=== PATIENT | female | born 1940 | race Caucasian/White ===

== ENCOUNTER 2020-05-01 09:47 | Outpatient (REF) | payer MEDICARE, SELFPAY | END 2020-05-01 09:48 | disposition home or self-care (01) | LOC: HO.LAB 09:47 | PROVIDERS: Visit Provider Internal Medicine | DX: Z20.822 Contact with and (suspected) exposure to COVID-19 (principal) | CPT/HCPCS: 36415; C9803; U0003 ==

== ENCOUNTER 2020-08-17 15:36 | Outpatient (REF) | payer MEDICARE, SELFPAY ==
--- NOTE | ~2020-08-17 | MM_ITS ---
EXAMINATION: MM SCREENING DIGITAL BREAST TOMOSYNTHESIS, BILATERAL CLINICAL INFORMATION: Screening. Asymptomatic. The lifetime risk of breast cancer based on the Tyrer-Cuzick Model is 3%. COMPARISON: Mammography: 06/11/2019, 04/23/2018, 04/19/2017 TECHNIQUE: Digital breast tomosynthesis is performed in both the craniocaudal and mediolateral oblique views along with computer-aided detection (CAD). Synthesized 2D images are generated from the tomosynthesis. Additional left MLO view is provided. FINDINGS: There are scattered areas of fibroglandular density (ACR BI-RADS breast composition Category b). There are no significant masses, abnormal calcifications, or other abnormalities. There is fine fibronodular parenchymal pattern similar to prior studies. The axilla and skin contours are unremarkable. No significant changes. MM/MM tomosynthesis screening BI IMPRESSION: No mammographic evidence of malignancy. ASSESSMENT: BI-RADS 1: Negative RECOMMENDATION: Routine annual mammography screening. This patient's information was entered into a reminder system with a target due date for their next mammogram.
== END 2020-08-17 15:37 | disposition home or self-care (01) ==
LOC: HO.MAMMO 15:36
PROVIDERS: Visit Provider Internal Medicine
DX: Z12.31 Encounter for screening mammogram for malignant neoplasm of breast (principal)
CPT/HCPCS: 77063; 77067

== ENCOUNTER 2021-03-17 11:39 | Emergency (ER) | payer OTHER, SELFPAY ==
--- NOTE | ~2021-03-17 | XR_ITS ---
EXAMINATION: XR HAND, RIGHT CLINICAL INFORMATION: Right hand/wrist pain COMPARISON: None TECHNIQUE: 4 views of the right hand FINDINGS: No fracture or dislocation. Alignment is anatomic. Joint spaces are maintained. Mild soft tissue swelling along the dorsum of the hand. XR/XR hand wrist RT IMPRESSION: Mild dorsal soft tissue swelling. No osseous abnormality.
[2021-03-17 12:38] VITALS: BP 131/70; PULSE 67; RESP 18; TEMP 36.8; O2SAT 96; BMI 29.5
--- NOTE | 2021-03-17 15:35 | ED.EXTPRO ---
HPI - Extremity Problem General Chief complaint: Extremity Injury, Upper Stated complaint: r hand pain/swelling Time Seen by Provider: 03/17/21 15:11 Source: patient and healthcare interpreter Mode of arrival: ambulatory Limitations: language barrier History of Present Illness HPI Narrative: 80-year-old female with past medical history of anemia, high cholesterol, hypertension, arthritis here with complaints of right hand and wrist pain for 2 weeks. Patient denies any fall or injury. She tells me she is right-handed and has been using hand more recently. She tells me she started to notice the pain after using scissors to cut open several boxes. She denies any numbness, tingling, warmth or redness or fever. Related Data Home Medications Medication Instructions Recorded Confirmed alendronate 70 mg tablet 1 tab PO QWEEK 06/01/20 06/01/20 amlodipine 5 mg tablet 1 tab PO DAILY 06/01/20 06/01/20 aspirin 81 mg tablet,delayed 1 tab PO DAILY 06/01/20 06/01/20 release calcium carbonate 600 mg (1,500 1 tab PO Q12H 06/01/20 06/01/20 mg)-vitamin D3 200 unit tablet (Calcium 600 + D(3)) ferrous sulfate 325 mg (65 mg 1 tab PO BID 06/01/20 06/01/20 iron) tablet lovastatin 20 mg tablet 1 tab PO BEDTIME 06/01/20 06/01/20 omega-3 fatty acids-fish oil 340 1 cap PO BID 06/01/20 06/01/20 mg-1,000 mg capsule (Fish Oil) Previous Rx's Medication Instructions Recorded naproxen 500 mg tablet 500 mg PO BID PRN #20 tab 03/17/21 Allergies Allergy/AdvReac Type Severity Reaction Status Date / Time SEAFOOD Allergy Intermediate VOMITTING, Uncoded 12/26/19 16:53 DIARRHEA AND DIZZINESS Review of Systems Review of Systems: Yes all other systems are reviewed and are negative Constitutional: Constitutional: Reports no additional constitutional complaints, Denies body ache(s), Denies chills, Denies fever(s), Denies headache(s) and Denies weakness Eyes: Eyes: Reports no additional eye complaints and Denies change in vision ENT: Reports system reviewed and no additional complaints, except as documented, Denies dizziness, Denies headache(s), Denies nasal congestion, Denies nasal discharge and Denies neck pain Cardiovascular: Cardiovascular: Reports no additional cardiovascular complaints, Denies chest pain, Denies leg edema and Denies dyspnea Respiratory: Respiratory: Reports no additional respiratory complaints, Denies cough and Denies dyspnea Gastrointestinal: Gastrointestinal: Reports no additional gastrointestinal complaints, Denies abdominal pain, Denies diarrhea, Denies nausea and Denies vomiting Genitourinary: Genitourinary: Reports no additional female genitourinary complaints and Denies urinary incontinence Musculoskeletal: Musculoskeletal: Reports no additional musculoskeletal complaints, Denies back pain, Reports arthralgias, Denies joint swelling, Denies neck pain, Denies numbness and Denies tingling Integumentary/Breasts: Skin/Breast: Reports system reviewed and no additional complaints, except as docu and Denies rash Neurologic: Reports system reviewed and no additional complaints, except as documented, Denies Abnormal speech present, Denies dizziness, Denies headache(s), Denies numbness, Denies tingling and Denies weakness PMFSH Past Medical History Attestation statement: The following information was validated with the patient. Source: old records reviewed and nursing notes reviewed Medical History History of anemia of chronic disease Hx of cataract Hx of thyroid nodule Family History Family History Father History of throat cancer Paternal Aunt Hx of breast cancer Social History Social History Alcohol intake: former Advance Directives: No Advance Directives Information Provided: Yes Physical Exam Vital Signs: Vital Signs: Last Vital Signs Temp 98.2 F 03/17/21 12:38 Pulse 67 03/17/21 12:38 Resp 18 03/17/21 12:38 BP 131/70 03/17/21 12:38 Pulse Ox 96 03/17/21 12:38 BMI result Body Mass Index 29.5 Const: General: cooperative, healthy appearing, comfortable and no acute distress Orientation/consciousness: patient oriented x3 Limitations: no limitations HENMT: Head: Yes normal to inspection Ears: hearing grossly normal bilaterally General nose exam: Normal external nose present Face and sinus: Yes normal facial exam Mouth: Normal oral and palatal mucosa present Throat: Yes posterior oropharynx normal Eyes: General: appearance normal, both eyes and all related structures Pupils: Equal, round and reactive pupils present Neck: Neck: Yes normal visual inspection Chest: Chest palpation & inspection: normal inspection of the chest Resp: Effort & Inspection: normal respiratory effort Auscultation: clear to auscultation bilaterally Cardio: Rate: regular rate Rhythm: regular rhythm Peripheral pulses: Peripheral pulses 2+ throughout GI: Inspection: Yes normal to inspection Palpation (GI): Soft to palpation and nontender Auscultation: normal bowel sounds Back/Spine/Pelvis: Thoracic/Lumbar Spine: thoracic and lumbar spine normal to inspection Skin: General skin exam: no rashes or lesions noted Neuro: General: patient oriented x3, no focal motor deficits and normal sensation to monofilament Cranial nerves: Yes Equal, round and reactive pupils present Cognition (Neuro): normal cognition Speech: No Abnormal speech present Gait exam (Neuro): Normal gait present Motor exam (neuro): 5/5 motor strength present throughout Extrem: Other: Tenderness over the distal right wrist over the radial aspect and over the right thumb and thenar. Positive Donato's test. Mild swelling noted around the site. No circumferential swelling. No redness or warmth. Neurovascularly intact distally. 2+ radial and ulnar pulses. General: Yes normal to inspection Course Course Course Narrative: 80-year-old female right-hand dominant here with complaints of right hand and wrist pain 2 weeks after using some scissors to cut open several boxes. Exam is consistent with de Quervain tenosynovitis. Patient need placed in a cock-up Velcro wrist splint. Will give her a low-dose NSAID and have her follow-up with orthopedics for persistent symptoms. X-rays from triage so No bony abnormality. Reviewed worrisome signs and symptoms of when to return to the emergency department. Comfortable discharge home. MDM - Extremity (Nontraumatic) Medical Records Attestation: I reviewed the patient's medical records. Lab Data Attestation: I reviewed the patient's lab results. Imaging Data right hand/wrist xray: Attestation: I personally reviewed and interpreted this imaging study as follows: Radiologist's impression: FINDINGS: No fracture or dislocation. Alignment is anatomic. Joint spaces are maintained. Mild soft tissue swelling along the dorsum of the hand.? XR/XR hand wrist RT IMPRESSION: Mild dorsal soft tissue swelling. No osseous abnormality.? Procedures Procedure Narrative Procedure Narrative: velcro cock up wrist splint Discharge Plan Discharge Clinical Impression: De Quervain's disease (tenosynovitis) Patient Disposition: Home, Self-Care Instructions: De Quervain Disease (ED) Additional Instructions: Hielo en la wilman. F?pj para mayor comodidad hank el d?a. Limite el uso de la mano. Seguimiento con ortopedia en 1 semana para dolor persistente. Prescriptions: New naproxen 500 mg tablet 500 mg PO BID PRN (Reason: pain) Qty: 20 RF: 0 No Action alendronate 70 mg tablet 1 tab PO QWEEK RF: 0 amlodipine 5 mg tablet 1 tab PO DAILY RF: 0 calcium carbonate-vitamin D3 [Calcium 600 + D(3)] 600 mg(1,500mg) -200 unit tablet 1 tab PO Q12H RF: 0 aspirin 81 mg tablet,delayed release (DR/EC) 1 tab PO DAILY RF: 0 ferrous sulfate 325 mg (65 mg iron) tablet 1 tab PO BID RF: 0 lovastatin 20 mg tablet 1 tab PO BEDTIME RF: 0 Fish Oil 340-1,000 mg capsule 1 cap PO BID RF: 0 Referrals: Jose Orozco MD [Physician] - 1 week (if no improvement in 7 days ) Interventions: ED Discharge Assessment Last Done: 03/17/21 16:19 Discharge Date/Time: 03/17/21 16:19 Print Language: Pashto
== END 2021-03-17 16:19 | disposition home or self-care (01) ==
PROVIDERS: Emergency Provider Emergency Medicine; PCP Internal Medicine
DX: M65.4 Radial styloid tenosynovitis [de Quervain] (principal); I10 Essential (primary) hypertension
CPT/HCPCS: 73110; 73130; 99283

== ENCOUNTER 2021-08-13 07:47 | Emergency (ER) | payer OTHER, SELFPAY ==
[2021-08-13 08:12] VITALS: BP 162/70; PULSE 69; RESP 18; TEMP 36.7; O2SAT 97; BMI 27.4
--- NOTE | 2021-08-13 08:58 | PC.NURSE ---
paperwork faced to [facility].
--- NOTE | 2021-08-13 09:17 | ED_ITS ---
HPI - General Adult General Chief complaint: Animal Bite Stated complaint: Leg lac Time Seen by Provider: 08/13/21 08:13 Source: patient Mode of arrival: ambulatory Limitations: no limitations History of Present Illness HPI narrative: 80 yolld female presents to the ED for left leg bite by a dog in her neighborhood. Patient states she was walking this morning and a women in her neighborhood was walking her dog and it got loose and bit her in her leg. Patient does not know where woman live and unknown of dog's rabies vaccine stratus Related Data Home Medications Medication Instructions Recorded Confirmed alendronate 70 mg tablet 1 tab PO QWEEK 06/01/20 07/20/21 amlodipine 5 mg tablet 1 tab PO DAILY 06/01/20 07/20/21 aspirin 81 mg tablet,delayed 1 tab PO DAILY 06/01/20 07/20/21 release calcium carbonate 600 mg-vitamin 1 tab PO Q12H 06/01/20 07/20/21 D3 5 mcg (200 unit) tablet (Calcium 600 + D(3)) ferrous sulfate 325 mg (65 mg 1 tab PO BID 06/01/20 07/20/21 iron) tablet lovastatin 20 mg tablet 1 tab PO BEDTIME 06/01/20 07/20/21 omega-3 fatty acids-fish oil 340 1 cap PO BID 06/01/20 07/20/21 mg-1,000 mg capsule (Fish Oil) Previous Rx's Medication Instructions Recorded naproxen 500 mg tablet 500 mg PO BID PRN #20 tab 03/17/21 amoxicillin 875 mg-potassium 1 tab PO Q12H 10 Days #20 tab 08/13/21 clavulanate 125 mg tablet Allergies Allergy/AdvReac Type Severity Reaction Status Date / Time SEAFOOD Allergy Intermediate VOMITTING, Uncoded 12/26/19 16:53 DIARRHEA AND DIZZINESS Review of Systems Review of Systems: Dog bite left leg. Yes all other systems are reviewed and are negative PMFSH Past Medical History Medical History History of anemia of chronic disease Hx of cataract Hx of thyroid nodule Family History Family History Father History of throat cancer Paternal Aunt Hx of breast cancer Social History Social History (Updated 04/12/22 @ 14:46 by Genna Haque CMA) Household Members: None Housing: Apartment Are you a primary medicare specialist to a significant other at home: No Do you presently have visiting nurse or other home services: Yes Alcohol intake: former Patient Tobacco Use Status: Never used Tobacco service: No Current occupational status: retired Physical Exam ED Vital Signs: Vital Signs - 24 hr 08/13/21 08:12 08/13/21 09:48 Temperature 98.1 F 98.1 F Pulse Rate 69 57 Respiratory Rate 18 14 Blood Pressure 162/70 H 139/67 Pulse Oximetry 97 95 BMI result Body Mass Index 27.4 Const General: cooperative, healthy appearing, comfortable, no acute distress, well developed, alert, awake and Physically active Orientation/consciousness: patient oriented x3 HENMT Head: Yes normal to inspection, Yes No palpable skull fracture present, Yes normocephalic, Yes atraumatic and No abrasion Eyes General: appearance normal, both eyes and all related structures Neck Neck: Yes normal visual inspection, Yes full ROM, Yes no lymphadenopathy, Yes no meningeal signs, Yes trachea midline, Yes supple, No anterior neck swelling and No tender Chest Chest palpation & inspection: normal inspection of the chest and normal palpation of entire chest wall Resp Effort & Inspection: normal respiratory effort and able to speak in complete sentences Auscultation: clear to auscultation bilaterally Cardio Jugular venous distension: no JVD Heart sounds: S1 normal heart sound present and S2 normal heart sound present GI Inspection: Yes normal to inspection and No abdominal wall ecchymosis Palpation (GI): Soft to palpation, not firm, nontender, no guarding and not rigid General: No CVA tenderness and Yes no CVA tenderness Back/Spine/Pelvis Back: no CVA tenderness, No CVA tenderness and No back tenderness Skin General skin exam: no rashes or lesions noted and elasticity normal Trauma: laceration (very superficial) left anterior lower leg Neuro General: patient oriented x3, gait normal, no meningeal signs and CN's II-XI intact bilaterally Cranial nerves: Yes CN's II-XII intact bilaterally Extrem General: Yes normal to inspection and Yes full ROM Upper/lower leg/hip images: 1. Small laceration. Not deep. Bleeding controlled. Extremities motor/neuro/vascular exam intact Psych Appearance: grossly normal, well kempt and not disheveled Course Course Course Narrative: Tdap ordered. Patient states she will not be able to get woman's from the records contact information does not know where she lived. So she is agreeable to rabies vaccine and immunoglobulin. Patient will be discharged with antibiotics Reevaluation(s) Reevaluation #1: Immunoglobulin rabies injection placed into wound. Vaccine given. Vaccine schedule given to patient. Patient will be discharged with Augmentin. Tdap given. Time: 10:37 Medical Decision Making MDM Narrative Medical decision making narrative: Dog bite Discharge Plan Discharge Clinical Impression: Dog bite Patient Disposition: Home, Self-Care Instructions: Animal Bite (ED) Additional Instructions: Se le gia? de tammy con antibi?ticos para prevenir la infecci?n por la mordedura del yanely. Debe regresar 3 veces m?s para la vacuna contra la radha. Regrese al servicio de urgencias de inmediato si tiene enrojecimiento, hinchaz?n, secreci?n de pus, mal olor, fiebre, escalofr?os, decoloraci?n de color alli azulado o cualquier otro s?ntoma preocupante. Por favor, héctor un seguimiento con el proveedor de atenci?n primaria Prescriptions: New amoxicillin-pot clavulanate 875-125 mg tablet 1 tab PO Q12H 10 Days Qty: 20 0RF No Action alendronate 70 mg tablet 1 tab PO QWEEK 0RF amlodipine 5 mg tablet 1 tab PO DAILY 0RF calcium carbonate-vitamin D3 [Calcium 600 + D(3)] 600 mg(1,500mg) -200 unit tablet 1 tab PO Q12H 0RF aspirin 81 mg tablet,delayed release (DR/EC) 1 tab PO DAILY 0RF ferrous sulfate 325 mg (65 mg iron) tablet 1 tab PO BID 0RF lovastatin 20 mg tablet 1 tab PO BEDTIME 0RF Fish Oil 340-1,000 mg capsule 1 cap PO BID 0RF naproxen 500 mg tablet 500 mg PO BID PRN (Reason: pain) Qty: 20 0RF Discharge Date/Time: 08/13/21 16:49 Print Language: Thai
[2021-08-13 09:48] VITALS: BP 139/67; PULSE 57; RESP 14; TEMP 36.7; O2SAT 95
[2021-08-13] MEDS: Rabies Vaccine (PCEC)/PF 1 ML VIAL IM (10:02)
[2021-08-13] MEDS: Diphth,Pertus(ACell),Tet Adult 0.5 ML SYRINGE IM (10:12)
[2021-08-13] MEDS: Rabies Immune Globulin/PF 1,500 UNIT/5 ML VIAL 1233.78 UNIT IM (10:20)
--- NOTE | 2021-08-13 10:27 | PC.NURSE ---
Fax sent to pharmacy and same day. COnfirmation received.
== END 2021-08-13 16:49 | disposition home or self-care (01) ==
PROVIDERS: Emergency Provider Emergency Medicine Emergency Medical Services; PCP Internal Medicine
DX: S81.852A Open bite, left lower leg, initial encounter (principal); Z20.3 Contact with and (suspected) exposure to rabies; Z29.14 Encounter for prophylactic rabies immune globulin; W54.0XXA Bitten by dog, initial encounter; Y93.01 Activity, walking, marching and hiking; Y92.410 Unspecified street and highway as the place of occurrence of the external cause; Y99.9 Unspecified external cause status
CPT/HCPCS: 90375; 90471; 90472; 90675; 90715; 96372; 99283; 99284

== ENCOUNTER 2021-08-16 13:06 | Outpatient (REF) | payer OTHER, SELFPAY | END 2021-08-16 13:07 | disposition home or self-care (01) | LOC: HO.MDS 13:06 | PROVIDERS: PCP Internal Medicine | DX: Z29.14 Encounter for prophylactic rabies immune globulin (principal); S80.872D Other superficial bite, left lower leg, subsequent encounter; W54.0XXD Bitten by dog, subsequent encounter; Z20.3 Contact with and (suspected) exposure to rabies | CPT/HCPCS: 90471; 90675 ==

== ENCOUNTER 2021-08-20 12:58 | Outpatient (REF) | payer OTHER, SELFPAY | END 2021-08-20 12:59 | disposition home or self-care (01) | LOC: HO.MDS 12:58 | DX: Z29.14 Encounter for prophylactic rabies immune globulin (principal); S80.872D Other superficial bite, left lower leg, subsequent encounter; W54.0XXD Bitten by dog, subsequent encounter; Z20.3 Contact with and (suspected) exposure to rabies | CPT/HCPCS: 90675; 96372 ==

== ENCOUNTER 2021-08-27 13:00 | Outpatient (REF) | payer OTHER, SELFPAY | END 2021-08-27 13:01 | disposition home or self-care (01) | LOC: HO.MDS 13:00 | PROVIDERS: Visit Provider Physician Assistant | DX: Z29.14 Encounter for prophylactic rabies immune globulin (principal); S80.872D Other superficial bite, left lower leg, subsequent encounter; W54.0XXD Bitten by dog, subsequent encounter; Z20.3 Contact with and (suspected) exposure to rabies | CPT/HCPCS: 90471; 90675 ==

== ENCOUNTER 2022-05-02 08:35 | Outpatient (REF) | payer OTHER, SELFPAY ==
--- NOTE | ~2022-05-02 | MM_ITS ---
EXAMINATION: MM SCREENING DIGITAL BREAST TOMOSYNTHESIS, BILATERAL CLINICAL INFORMATION: Screening. Asymptomatic. The lifetime risk of breast cancer based on the Tyrer-Cuzick Model is 2%. COMPARISON: Mammography: 08/17/2020, 06/11/2019, 04/23/2018 TECHNIQUE: Digital breast tomosynthesis is performed in both the craniocaudal and mediolateral oblique views along with computer-aided detection (CAD). Synthesized 2D images are generated from the tomosynthesis. FINDINGS: There are scattered areas of fibroglandular density (ACR BI-RADS breast composition Category b). There are no significant masses, abnormal calcifications, or other abnormalities. Parenchymal pattern is similar to prior studies. There is no architectural abnormality. The axilla and skin contours are unremarkable. No significant changes. MM/MM tomosynthesis screening BI IMPRESSION: No mammographic evidence of malignancy. ASSESSMENT: BI-RADS 1: Negative RECOMMENDATION: Routine annual mammography screening. This patient's information was entered into a reminder system with a target due date for their next mammogram.
== END 2022-05-02 08:36 | disposition home or self-care (01) ==
LOC: HO.MAMMO 08:35
PROVIDERS: Visit Provider Internal Medicine
DX: Z12.31 Encounter for screening mammogram for malignant neoplasm of breast (principal)
CPT/HCPCS: 77063; 77067

== ENCOUNTER 2023-04-28 08:11 | Outpatient (REF) | payer OTHER, SELFPAY ==
[2023-04-28 12:10] LABS: Anion Gap 13 (12-20); Blood Urea Nitrogen 25 mg/dL (9-16); Calcium 9.5 mg/dL (8.4-10.2); Carbon Dioxide 29 mmol/L (22-29); Chloride 106 mmol/L (96-108); Estimated Glomerular Filt Rate > 60; Glucose Random 99 mg/dL (60-115); Potassium 4.3 mmol/L (3.3-5.1); Sodium 144 mmol/L (135-145)
== END 2023-04-28 08:12 | disposition home or self-care (01) ==
LOC: HO.HHCL 08:11
PROVIDERS: Visit Provider Internal Medicine
DX: I10 Essential (primary) hypertension (principal)
CPT/HCPCS: 36415; 80048

== ENCOUNTER 2023-05-12 14:27 | Outpatient (REF) | payer OTHER, SELFPAY | END 2023-05-12 14:28 | disposition home or self-care (01) | LOC: HO.MAMMO 14:27 | PROVIDERS: PCP Internal Medicine; Visit Provider Internal Medicine | DX: Z12.31 Encounter for screening mammogram for malignant neoplasm of breast (principal) | CPT/HCPCS: 77063; 77067 ==

== ENCOUNTER → 2023-05-12 15:15 | Outpatient (BNV) | payer OTHER, SELFPAY | PROVIDERS: PCP Internal Medicine; Visit Provider Radiology Diagnostic Radiology | DX: Z12.31 Encounter for screening mammogram for malignant neoplasm of breast (principal) | CPT/HCPCS: 77063; 77067 ==

== ENCOUNTER → 2023-08-28 13:43 | Outpatient (REF) | payer OTHER, SELFPAY ==
--- NOTE | 2023-08-28 13:47 | CA_ITS ---
Transthoracic Echocardiogram Patient (Last, First, Middle): Dinah Minaya, Gender: Female Date of : 1940 Age: 82 Procedure Date: 08/28/2023 Procedure Type: Transthoracic Echocardiogram Location: OP Height: 149.86 cm Weight: 58.97 kg BSA: 1.54 m2 Heart Rate: 64 bpm BP: 128 / 72 mmHg Foreclosure Paralegal: SB Referring MD: Darwin Rosas MD Symptoms: HEART MURMUR Study Quality: Fair ECG Rhythm: Sinus Conclusions: - The left ventricular systolic function is normal. The calculated ejection fraction is 65% by biplane method. - The left atrium is moderately dilated. - There is mild calcification of the aortic valve. - There is mild mitral annular calcification. - There is mild dilatation of the ascending aorta measuring 3.90 cm. Findings Left Ventricle Normal left ventricular cavity size. There is normal left ventricular wall thickness. The left ventricular systolic function is normal. The calculated ejection fraction is 65% by biplane method. There is no evidence of regional wall motion abnormalities. Diastolic function is normal for age. Right Ventricle Normal right ventricular cavity size and systolic function. Atria The left atrium is moderately dilated. The right atrium is normal in size. Aortic Valve There is a normal trileaflet aortic valve. There is mild calcification of the aortic valve. There is no aortic valve stenosis. There is no aortic valve regurgitation. Mitral Valve There is mild mitral annular calcification. There is no mitral valve regurgitation. There is no mitral valve stenosis. Pulmonic Valve The pulmonic valve is likely normal. Tricuspid Valve There is mild tricuspid valve regurgitation. There is no evidence of pulmonary hypertension. Great Vessels There is mild dilatation of the ascending aorta measuring 3.90 cm. Venous The inferior vena cava is normal in size and collapses greater than 50% with inspiration. Pericardium/Pleural There is no evidence of pericardial effusion. Prior Study Comparison Changes noted compared to prior study dated: 10/25/2017. Left atrium dilated. Measurements 2D Linear Measurements IVSd: 1.00 0.6-0.9/0.6-1.0 cm LVIDd: 5.01 3.9-5.3/4.2-5.9 cm LVIDd Index: 3.25 2.4-3.2/2.2-3.1 cm/m2 LVIDs: 3.13 2.0-3.6 cm LVPWd: 0.71 0.7-1.1 cm Ao Root: 2.90 2.1-3.5 cm LA Diam: 3.80 2.7-3.8/3.0-4.0 cm LAIDs Index: 2.47 1.5-2.3 cm/m2 LV Mass: 184.82 67-162/88-224 g LV Mass Index: 120.01 43-95/49-115 g/m2 LVOT Diam: 1.90 3.0+(-)1.3 cm 2D Systolic Function EF 4C: 63.10 >55% EF 2C: 65.00 >55% EF BiP: 64.80 >55% Mitral Valve MV Pk E: 0.96 MV PK A: 0.97 MV Decel Time: 236.00 E/A: 1.00 E'Lateral: 5.55 E'Medial: 6.42 E/E' Med: 15.00 E/E' Lat: 17.40 PHT: 69.00 MVA PHT: 3.19 Decel [place]: 4.08 Aortic Valve AoV Pk Manpreet: 1.85 AoV Pk Grad: 14.00 JERZY: 1.99 LVOT LVOT Pk Manpreet: 1.32 LVOT Mn Manpreet: 0.91 LVOT VTI: 0.30 LVOT Pk Grad: 7.00 LVOT Mn Grad: 4.00 LVOT Diam: 1.90 LVOT Area: 2.84 Diastolic Function MV Pk E: 0.96 MV Pk A: 0.97 E/A: 1.00 E'Medial: 6.42 E/E' Med: 15.00 E' Laterial: 5.55 E/E' Lat: 17.40 Right Ventricle TAPSE (mm): 24.80 TVS' Manpreet: 16.50 Tricuspid Valve TR Pk Manpreet: 2.55 TR Pk Grad: 26.00 RA Press: 3.00 RVSP: 29.00 Great Vessels Aorta Ao Root-2D: 2.90 2.0-3.7 cm Ao Asc: 3.90 2.1-3.4 cm Pulmonary Valve PV Pk Manpreet: 0.93 Peak PV Grad: 3.00 Updated in Other Vendor System with Status of Final Hector Ramires MD electronically signed on 08/28/2023 4:09:00 PM with status of Final
== END ==
LOC: HO.CARD 13:43
PROVIDERS: PCP Internal Medicine; Visit Provider Internal Medicine
DX: R01.1 Cardiac murmur, unspecified (principal)
CPT/HCPCS: 93306

== ENCOUNTER → 2023-08-28 13:47 | Outpatient (BNV) | payer OTHER, SELFPAY | PROVIDERS: PCP Internal Medicine; Visit Provider Internal Medicine | DX: I36.1 Nonrheumatic tricuspid (valve) insufficiency (principal); I35.8 Other nonrheumatic aortic valve disorders; I34.81 Nonrheumatic mitral (valve) annulus calcification | CPT/HCPCS: 93306 ==

== ENCOUNTER 2023-12-18 08:10 | Outpatient (REF) | payer OTHER, SELFPAY ==
[2023-12-18 12:22] LABS: Alanine Aminotransferase 12 U/L (0-31); Albumin Level 3.7 g/dL (3.5-5.0); Alkaline Phosphatase 80 U/L (39-117); Aspartate Amino Transferase 17 U/L (5-31); Bilirubin Direct 0.2 mg/dL (0.0-0.5); Bilirubin Total 0.5 mg/dL (0.0-1.0); Cholesterol 146 mg/dL (<200); HDL Cholesterol 39 mg/dL (>40); LDL Cholesterol Calculated 93 mg/dL (<100); Total Protein 7.6 g/dL (6.5-8.0); Triglycerides 70 mg/dL (<150)
[2023-12-18 14:53] LABS: Reflex LDLD? No
== END 2023-12-18 08:11 | disposition home or self-care (01) ==
LOC: HO.HHCL 08:10
PROVIDERS: Visit Provider Internal Medicine
DX: E78.00 Pure hypercholesterolemia, unspecified (principal); B35.1 Tinea unguium; I10 Essential (primary) hypertension
CPT/HCPCS: 36415; 80061; 80076

== ENCOUNTER 2024-06-17 14:55 | Outpatient (REF) | payer OTHER, SELFPAY ==
--- OUTSIDE RECORDS SUMMARY | 2024-06-17 17:06 | XMS_ITS | Encounter Summary ---
Author Organization [facility] Address [address] [place] [address] Care Team Providers Care Soda Fountain Clerk Name Role Phone Darwin Mccain MD Primary Care Provide r Reason for Visit * Reason Comments Med Refill Encounter Details Date Type Department Care Team ([facility] st Contact Info) Description 11/23/2023 Refill [facility] [address], [place] [phone] Darwin Mccain MD [address] [place], [place] [phone] Onychomycosis of left great toe Social History Tobacco Use Types Packs/Day Years Used Date Smoking Tobacco: Never Passive Smoke Exposure: Never Smokeless Tobacco: Never Depression Answer Date Recorded Patient Health Questionnaire-9 Score 0 08/15/2023 Patient Health Questionnaire-9 Score 0 08/15/2023 Last PHQ-9: Questionnaire Data Not on file 0 08/15/2023 Housing Stability Answer Date Recorded What is your housing situation today? I have gar[facility] clement 02/03/[address] you li ve. Do you have problems with any of the following? None of the above 02/03/2023 Food Insecurity Answer Date Recorded Within the past 12 months, y ou worried that your food would run out before you got money to buy more: Never True 02/03/2023 Within the past 12 months,th e food you bought just didn't last and you didn't have enough money to get more: Never True Transportation Answer Date Recorded In the past 12 months, has l ack of transportation kept you from medical appts, meetings, work or from getting things needed for daily living? No 02/03/2023 Utilities Answer Date Recorded In the past 12 months, has t he electric, gas, oil or water company threatened to shut off services in your home? No 02/03/2023 Depression Answer Date Recorded Patient Health Questionnaire-2 Score 0 08/15/2023 Comments Unknown Sex and Gender Information Value Date Recorded Sex Assigned at Female 02/07/2022 10:16 AM EDT Legal Sex Female 10:16 AM EDT Gender Identity Female 02/07/2022 10:16 AM EDT Sexual Orientation Straight 02/07/2022 10 :16 AM EDT documented as of this encounter Plan of Treatment Upcoming Encounters Date Type Department Care Team (Late st Contact Info) Description 08/13/2024 2:15 PM EDT Office Visit [facility] [address] [place] [address] Darwin Mccain MD [address] [place], [place] [phone] documented as of this encounter Visit Diagnoses Diagnosis Onychomycosis of left great toe documented in this encounter Additional Health Concerns Assessment Noted Time PHQ-9 Depression Total Score: 0 08/15/19 24 2:20 PM EDT documented as of this encounter Care Teams Soda Fountain Clerk Relationship Specialty Start Date End Date Darwin Mccain MD [address] [place] [phone] PCP - General Internal Medicine 08/07/20 documented as of this encounter
--- OUTSIDE RECORDS SUMMARY | 2024-06-17 17:06 | XMS_ITS | Encounter Summary ---
Author Organization [employer] Address [address] [facility] 7[address] [place] [address] Care Team Providers Care Truss Maker Name Role Phone Darwin Mccain MD Primary Care Provide r Reason for Visit * Reason Comments Med Refill Encounter Details Date Type Department Care Team ([facility] st Contact Info) Description 06/04/2024 Refill [facility] [address] [place], [place] [phone] Darwin Mccain MD [address] [place], [place] [phone] Social History Tobacco Use Types Packs/Day Years [...] Recorded Patient Health Questionnaire-2 Score 0 08/15/2023 Internet Access Answer Date Recorded Internet Access Q1 Yes 12/11/2023 Internet Access Q2 Not on file 12/11/2023 Comments Unknown Sex and Gender Information Value [...] Description 08/13/2024 2:15 PM EDT Office Visit [facility] [address] [place] [address] Darwin Mccain MD [address] [place] [address] documented as of this encounter Visit Diagnoses Not on filedocumented in this encounter Additional Health Concerns Assessment Noted Time PHQ-9 Depression Total Score: 0 08/15/19 24 2:20 PM EDT documented as of this encounter Care Teams Truss Maker Relationship Specialty Start Date End Date Darwin Mccain MD [address] [place] [address] PCP - General Internal Medicine 08/07/20 documented as of this encounter
--- OUTSIDE RECORDS SUMMARY | 2024-06-17 17:06 | XMS_ITS | Clinical Summary ---
Author Organization [employer] Address [address] [place] [address] 7[address] [place] [address] Care Team Providers Care On Car Supervisor Name Role Phone Darwin Mccain MD Primary Care Provide r Allergies No known active allergies Medications FeroSul 325 (65 Fe) MG tablet TAKE 1 TABLET BY MOUTH TWICE DAILY IN THE MORNING AND IN THE EVENING 05/20/19 23 Active ammonium lactate (Lac-Hydrin) 12 % lotion APPLY TO SKIN EVERY DAY AFTER DE BATH 01/05/20 23 Active gabapentin (Neurontin) 100 MG capsule TAKE 1-3 CAPSULES BY MOUTH AT BEDTIME 11/26/19 23 Active triamcinolone (Kenalog) 0.1 % cream MIX WITH cerave AND APPLY DAILY TO ARMS DIRECTED 01/07/20 23 Active Diclofenac Sodium 1 % creamIndications :Actinic keratoses Apply twice daily for 1-2 weeks 120 g 04/28/19 24 Active fluorouracil (Efudex) 5 % creamIndications :Actinic keratoses Apply topically 2 times daily. For 1-2 weeks 40 g 06/02/19 24 Active Calcium + Vitamin D3 600-5 MG-MCG tabletIndication s:Age-related osteoporosis without current pathological fracture TAKE 1 TABLET BY MOUTH EVERY MORNING 60 tablet 06/27/19 24 Active amLODIPine (Norvasc) 2.5 MG tablet TAKE 1 TABLET BY MOUTH EVERY MORNING 30 tablet 07/20/19 24 Active lovastatin (Mevacor) 20 MG tablet TAKE 1 TABLET BY MOUTH AT BEDTIME 30 tablet 07/20/19 24 Active amLODIPine (Norvasc) 5 MG tablet TAKE 1 TABLET BY MOUTH EVERY MORNING 30 tablet 07/20/19 24 Active valsartan (Diovan) 80 MG tablet TAKE 1 TABLET BY MOUTH EVERY MORNING 30 tablet 11 07/20/19 24 Active albuterol 108 (90 Base) MCG/ACT inhaler Inhale 2 puffs every 6 (six) hours if needed for wheezing. 18 g 11 11/20/19 24 025 Active fluticasone furoate (Arnuity Ellipta) 100 MCG/ACT inhaler Inhale 1 puff Once per day. Rinse mouth with water after use to reduce aftertaste and incidence of candidiasis. Do not swallow. 1 each 11/20/19 24 025 Active omega-3 acid ethyl esters (Lovaza) 1 g capsule TAKE 1 CAPSULE BY MOUTH TWICE DAILY IN THE MORNING AND IN THE EVENING 180 capsule 1 01/23/20 24 Active omeprazole OTC (PriLOSEC OTC) 20 MG EC tabletIndication s:Gastroesophage al reflux disease without esophagitis Take 1 tablet (20 mg) by mouth before breakfast. Do not crush, chew, or split. 30 tablet 3 03/21/20 24 Active aspirin (Aspirin Low Dose) 81 MG EC tablet Take 1 tablet (81 mg) by mouth in the morning. 90 tablet 04/02/20 24 Active alendronate (Fosamax) 70 MG tabletIndication s:Osteoporosis, unspecified osteoporosis type, unspecified pathological fracture presence TAKE 1 TABLET BY MOUTH ONCE A WEEK WITH 6 TO 8 OZ OF WATER 30 MINUTES BEFORE FIRST FOOD OF DAY. DO NOT LIE DOWN FOR 30 MINUTES. 12 tablet 1 04/15/19 25 Active fluticasone (Flonase) 50 MCG/ACT nasal spray INSTILL 2 SPRAYS IN EACH NOSTRIL ONCE DAILY 16 g 2 06/04/19 25 Active fluticasone (Flonase) 50 MCG/ACT nasal spray INSTILL 2 SPRAYS IN EACH NOSTRIL ONCE DAILY 16 g 2 02/19/20 24 025 Discontinued Active Problems Problem Noted Date Diagnosed Date Gastroesophageal reflux disease without esophagi tis 03/21/2024 Assessment & Plan (03/21/2024 3:02 PM EST): New onset Plan: Omeprazole 20 mg po daily Overweight (BMI 25.0-29.9) 08/15/2023 Assessment & Plan (08/15/2023 2:45 PM EDT): Patient has been counseled and educated about diet and exercise. Personal goal of weight loss discussedPatient has comorbidity of: HTN Heart murmur 08/15/2023 Assessment & Plan (12/19/2023 1:01 PM EDT): ECHO 08/28/2023 showed: Conclusions: - The left ventricular systolic function is normal. The calculated ejection fraction is 65% by biplane method. - The left atrium is moderately dilated. - There is mild calcification of the aortic valve. - There is mild mitral annular calcification. - There is mild dilatation of the ascending aorta measuring 3.90 cm. Assessment & Plan (08/15/2023 2:56 PM EDT): Newly noted Plan; ECHO Onychomycosis of left great toe 08/15/2023 Assessment & Plan (08/15/2023 3:17 PM EDT): Patient would like to be treated Discussed different options, opted for Oral terbinafine, discussed potential risks such as liver inflammation or even damage. Pt would like to take it. 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 CSF analysis showed Glu 50, OCBs 4 and her VDRL was NEGATIVE Interestingly enough despite a negative VDRL he chose to treat her again with PCN ( Pt had been appropriately treated for Syphilis many years ago and her RPR titers had remained very low over the years He mentions on his note from 10/22/2018 that MRI of brain only showed mild atrophy and mild MVD He stopped her Aricept Assessment & Plan (05/31/2022 2:00 PM EST): She is under the care of neurology ( Dr savage ) who as part of his work up did a lumbar puncture. CSF analysis showed Glu 50, OCBs 4 and her VDRL was NEGATIVE Interestingly enough despite a negative VDRL he chose to treat her again with PCN ( Pt had been appropriately treated for Syphilis many years ago and her RPR titers had remained very low over the years He mentions on his note from 10/22/2018 that MRI of brain only showed mild atrophy and mild MVD He stopped her Aricept and asked her to go back and see him Mild persistent asthma 10/25/2016 Assessment & Plan (05/31/2022 2:00 PM EST): Remains on Flovent and Albuterol, no recent exacerbations. Osteoporosis 06/30/2015 Assessment & Plan (05/31/2022 2:00 PM EST): On Fosamax q week Continue with Calcium plus vit D Essential hypertension 03/26/2015 Assessment & Plan (03/21/2024 2:55 PM EST): Pt here for a follow up BP remains controlled She is on a regimen of: Norvasc 7.5 mg po daily and Diovan 80 mg po daily Most recent electrolytes, Bun and Creatinine done on: Lab Results Component Value Date NA 144 04/28/2023 NA 142 03/24/2022 K 4.3 04/28/2023 K 4.0 03/24/2022 CL 106 04/28/2023 CL 104 03/24/2022 BUN 25 (H) 04/28/2023 BUN 24 03/24/2022 CREATININE 0.73 04/28/2023 CREATININE 0.68 03/24/2022 04/28/2023 were wnl. Plan: Continue with current regimen, repeat BMP 4 month f/u patient advised to adhere to a low sodium diet, encouraged about medication compliance, counseled about weight loss. Assessment & Plan (12/19/2023 1:01 PM EDT): Pt here for a follow up BP remains controlled She is on a regimen of: Norvasc 7.5 mg po daily and Diovan 80 mg po daily Most recent electrolytes, Bun and Creatinine done on: 04/28/2023 were wnl. Plan: Continue with current regimen' 4 month f/u patient advised to adhere to a low sodium diet, encouraged about medication compliance, counseled about weight loss. Assessment & Plan (08/15/2023 2:41 PM EDT): Pt here for a follow up BP remains controlled She is on a regimen of: Norvasc 7.5 mg po daily and Diovan 80 mg po daily Most recent electrolytes, Bun and Creatinine done on: 04/28/2023 were wnl. Plan: Continue with current regimen' 4 month f/u patient advised to adhere to a low sodium diet, encouraged about medication compliance, counseled about weight loss. Assessment & Plan (04/06/2023 3:04 PM EST): Pt here for a follow up BP remains controlled She is on a regimen of: Norvasc 7.5 mg po daily and Diovan 80 mg po daily Most recent electrolytes, Bun and Creatinine done on: 03/24/2022 were wnl. Will repeat Plan: Continue with current regimen' 4 month f/u patient advised to adhere to a low sodium diet, encouraged about medication compliance, counseled about weight loss. Assessment & Plan (08/11/2022 2:48 PM EDT): Pt here for a follow up BP controlled She is on a regimen of: Norvasc 7.5 mg po daily and Diovan 80 mg po daily Most recent electrolytes, Bun and Creatinine done on: 03/24/2022 were wnl. Plan: Continue with current regimen' 4 month f/u patient advised to adhere to a low sodium diet, encouraged about medication compliance, counseled about weight loss. Assessment & Plan (05/31/2022 2:13 PM EST): Televisit BP controlled per her report She is on a regimen of: Norvasc 7.5 mg po daily and Diovan 80 mg po daily Most recent electrolytes, Bun and Creatinine done on: 03/24/2022 were wnl. Plan: Continue with current regimen' 4 month f/u patient advised to adhere to a low sodium diet, encouraged about medication compliance, counseled about weight loss. Hypercholesterolemia 12/09/2011 Assessment & Plan (12/19/2023 1:02 PM EDT): Patient with elevated lipids. Most recent lipid profile from: Lab Results Component Value Date TRIG 70 12/18/2023 TRIG 100 03/24/2022 CHOL 146 12/18/2023 LDLCHOLCAL 93 12/18/2023 HDL 39 (L) 12/18/2023 Currently on a regimen of: Lovastatin 20mg po qhs. Repeat Lipid profile For now will continue with current regimen. advised to try to adhere to a low cholesterol diet, counseled and educated about diet and exercise, Assessment & Plan (08/15/2023 2:42 PM EDT): Patient with elevated lipids. Most recent lipid profile from: 03/24/2022 shows a total cholesterol of: 158 triglycerides of: 100 HDL of: 49 and LDL of: 89 Currently on a regimen of: Lovastatin 20mg po qhs. Repeat Lipid profile For now will continue with current regimen. advised to try to adhere to a low cholesterol diet, counseled and educated about diet and exercise, Assessment & Plan (04/06/2023 3:05 PM EST): Patient with elevated lipids. Most recent lipid profile from: 03/24/2022 shows a total cholesterol of: 158 triglycerides of: 100 HDL of: 49 and LDL of: 89 Currently on a regimen of: Lovastatin 20mg po qhs. Repeat Lipid profile For now will continue with current regimen. advised to try to adhere to a low cholesterol diet, counseled and educated about diet and exercise, Assessment & Plan (08/11/2022 2:50 PM EDT): Patient with elevated lipids. Most recent lipid profile from: 03/24/2022 shows a total cholesterol of: 158 triglycerides of: 100 HDL of: 49 and LDL of: 89 Currently on a regimen of: Lovastatin 20mg po qhs. For now will continue with current regimen. advised to try to adhere to a low cholesterol diet, counseled and educated about diet and exercise, Assessment & Plan (05/31/2022 2:14 PM EST): Patient with elevated lipids. Most recent lipid profile from: 08/07/2020 shows a total cholesterol of: 158 triglycerides of: 100 HDL of: 49 and LDL of: 89 Currently on a regimen of: Lovastatin 20mg po qhs. For now will continue with current regimen. advised to try to adhere to a low cholesterol diet, counseled and educated about diet and exercise, Vitiligo 12/09/2011 Anemia 12/09/2011 Assessment & Plan (05/31/2022 2:01 PM EST): Resolved Under the care of Packaging Assembler, last seen 01/20/2022 both GI and Hematology. multifactorial, initially there was a component of iron deficiency. Packaging Assembler thinks might be chronic disease Repeat CBC 03/2021 back to normal Constipation 02/04/2011 Assessment & Plan (08/11/2022 3:04 PM EDT): Dr Peraza lowered her Iron pills Resolved Problems Problem Noted Date Diagnosed Date Resolved Date Acute cough 03/06/2023 03/21/2024 Assessment & Plan (03/06/2023 8:01 PM EST): No signs of asthma exacerbation currently, normal lung exam, O2 sats 96% Mucinex BID x 7 days Encounters Date Type Department Care Team Description 06/10/2024 3:00 PM EST Office Visit [facility] OPTOM[facility]RY [address] [facility] [address] Venkatesh, Coco, OD 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); Dry eye syndrome of both eyes; Retinal drusen of both eyes; Presbyopia of both eyes 06/10/2024 Travel 06/04/2024 Refill [facility] [address] [place] [address] Darwin Mccain MD 05/06/2024 Telephone [facility] MEDICINE [address] [place] [address] Darwin Mccain MD July04/12/2024 Refill [facility] [address] [place] [address] Darwin Mccain MD Osteoporosis, unspecified osteoporosis type, unspecified pathological fracture presence 04/02/2024 Refill [facility] [address] [place] [address] Darwin Mccain MD 03/21/2024 3:00 PM EST Office Visit [facility] MED[facility] [address] [place] [address] Darwin Mccain MD Essential hypertension (Primary Dx); Gastroesophageal reflux disease without esophagitis 03/21/2024 Travel from Last 3 Months Immunizations Name Administration Dates Next Due Influenza High-dose Quadriva lent Preservative Free 01/12/2021 Influenza Quadrivalent Adjuvanted 12/21/2022,08/2021,12/14/2019 Influenza injectable quadriv alent IIV4 with preservative 01/06/2015 Influenza injectable quadriv alent preservative free 01/10/2019 Influenza, High Dose Seasona l, Preservative Free 01/09/2024,02/22/2018,02/09/2018,12/31,03/01/2016 Influenza, IIV3, injectable 12/26/2013, 1 Influenza, Split (incl. christy fied surface antigen) 12/31/2012,12/09/2011 Moderna Covid-19 Vaccine 12+ 04/21/2021,06/19/19 21,05/22/2020 Moderna Covid-19 Vaccine 6+ Bivalent 03/24/2022 Pneumococcal Conjugate PCV 13 01/06/2015 Pneumococcal Polysaccharide PPSV23 11/24/2015, Rabies - IM Fibroblast Culture 08/13/2021 TD (adult), 2 Lf tetanus tox oid, preservative free, adsorbed 02/27/2012,07/13/2001 Tdap 08/13/2021 Zoster, Recombinant 04/14/2023,12/06/2022 Zoster, live 08/07/2014 Social History Tobacco Use Types Packs/Day Years Used Date Smoking Tobacco: Never Passive Smoke Exposure: Never Smokeless Tobacco: Never Tobacco Cessation:Counseling Given: Not Answered Depression Answer Date Recorded Patient Health Questionnaire-9 [...] Orientation Straight 02/07/2022 10 :16 AM EDT Last Filed Vital Signs Vital Sign Reading Time Taken Comments Blood Pressure 139/71 03/21/2024 2:50 PM EST Pulse 60 03/21/2024 2:50 PM EST Temperature 35.6 ??C (96 ??F) 03/21/2024 2:50 PM EST Respiratory Rate 20 03/21/2024 2:50 PM EST Oxygen Saturation 97% 03/21/2024 2:50 PM EST Inhaled Oxygen Concentration - - Weight 63.2 kg (139 lb 6.4 oz) 03/21/2024 2:50 P M EST Height 149.9 cm (4' 11 ) 03/21/2024 2:50 PM EST Body Mass Index 28.16 03/21/2024 2:50 PM EST Plan of Treatment Upcoming Encounters Date Type Department Care Team (Late st Contact Info) Description 08/13/2024 2:15 PM EDT Office Visit [facility] MEDICINE [address] [place] [address] Darwin Mccain MD [address] [place] [address] Health Maintenance Due Date Last Done Comments Alcohol/Substance Use Screening 1952 RSV Patients and Patients Aged 60 years or older (1 - 1-dose 75+ series) 2016 COVID-19 Vaccine ( season) 2023 03/24/2022, 04/21/2021, 06/18/2020, Additional history exists SDOH Screening 08/06/2024 08/07/2023 Depression Screening 08/14/2024 08/15/2023, 08/15/19 24 Tobacco Screening 06/10/2025 06/10/2024 Lipid Panel 12/17/2028 12/18/2023, 03/10, 08/07/2020 DTaP/Tdap/Td Vaccines (2 - Td or Tdap) 08/14/2031 08/13/2021, 02/27/2012, 07/13/2001 Pneumococcal Vaccine: 50+ Years Completed 11/24/2015, 01/06/2015, 03/05/2001 Zoster Vaccines Completed 04/14/2023, 11/09, 08/07/2014 Influenza Vaccine Completed 01/09/2024, , 01/12/2022, Additional history exists HIB Vaccines Aged Out No longer eligi ble based on patient's age to complete this topic HPV Vaccines Aged Out No longer eligi ble based on patient's age to complete this topic Hepatitis A Vaccines Aged Out No long er eligible based on patient's age to complete this topic Hepatitis B Vaccines Aged Out No long er eligible based on patient's age to complete this topic IPV Vaccines Aged Out No longer eligi ble based on patient's age to complete this topic Meningococcal Vaccine Aged Out No miranda deacon eligible based on patient's age to complete this topic RSV under 20 months Aged Out No longe r eligible based on patient's age to complete this topic Rotavirus Vaccines Aged Out No longer eligible based on patient's age to complete this topic Procedures Procedure Name Priority Date/Time Associated Diagnosis Comments OCT, RETINA - OU - BOTH EYES Routine 06/10/2024 4:22 PM EST Retinal drusen of both eyes LIPID PANEL, STANDARD Routine 12/18/2023 8:11 AM EDT Essential hypertension Hypercholesterolemi a from Last 3 Months or Most Recently Relevant to Health Maintenance Results * (ABNORMAL) Lipid Panel, Standard (12/18/2023 8:11 AM EDT) Triglycerides 70 <150 mg/dL [facility] Comment:Desirable Triglyceri de: less than 150 mg/dLBorderline High Triglyceride 150-199 mg/dLHigh Triglyceride: 200-499 mg/dLVery High Triglyceride: greater than or equal to 5OO mg/dL Cholesterol 146 <200 mg/dL [facility] Comment:Desirable Cholestero l: less than 200 mg/dLBorderline High Cholesterol: 200-239 mg/dLHigh Cholesterol: greater than 239 mg/dL LDL Cholesterol Calculated 93 <100 mg/dL [facility] Comment:Desirable LDL: less than 100 mg/dLNear Optimal/Above Optimal LDL: 110- 129 mg/dLBorderline High LDL: 130-159 mg/dLHigh LDL: 160-189 mg/dLVery High LDL: greater than or equal to 190 mg/dL HDL Cholesterol 39(L) >40 mg/dL [facility] Comment:Desirable HDL: grea ter than 40 mg/dL Note: This HDL assay may give artificially low results in patients with liver disease. Blood Venous blood specimen / Unknown 12/18/2023 8:11 AM EDT 12/18/2023 11:32 AM EDT us Darwin Lindquist MD LAB BLOOD ORDERABLES Final Result [facility] [address] [place] [address] [phone] from Last 3 Months or Most Recently Relevant to Health Maintenance Insurance [facility] DUAL COMPLETE Advance Directives Documents on File Type Date Recorded Patient Director Of Marketing Communications Expl anation Advance Directives and Living Will 03/22/2018 Health Care Proxy 03/22/18 Care Teams On Car Supervisor Relationship Specialty Start Date End Date Darwin Mccain MD [address] [place] [address] PCP - General Internal Medicine 08/07/20
--- OUTSIDE RECORDS SUMMARY | 2024-06-17 17:06 | XMS_ITS | Encounter Summary ---
Author Organization [employer] Address [address] [facility] [address] [place] [address] Care Team Providers Care Fire Code Inspector Name Role Phone Darwin Mccain MD Primary Care Provide r Encounter Details Date Type Department Care Team (Latest Contact Info) Description 06/10/2024 Travel Social History Tobacco Use Types Packs/Day Years [...] Description 08/13/2024 2:15 PM EDT Office Visit [facility] MED[facility] [address] [place] [address] Darwin Mccain MD [address] [place] [address] documented as of this encounter Visit Diagnoses Not on filedocumented in this encounter Additional Health Concerns Assessment Noted Time PHQ-9 Depression Total Score: 0 08/15/19 24 2:20 PM EDT documented as of this encounter Care Teams Fire Code Inspector Relationship Specialty Start Date End Date Darwin Mccain MD [address] [place] [address] PCP - General Internal Medicine 08/07/20 documented as of this encounter
--- OUTSIDE RECORDS SUMMARY | 2024-06-17 17:06 | XMS_ITS | Encounter Summary ---
Author Organization [employer] Address [address] [facility] [address] [place] [address] Care Team Providers Care Neurology Stroke Physician Name Role Phone Darwin Mccain MD Primary Care Provide r Reason for Visit * Reason Comments Blurred Vision Encounter Details Date Type Department Care Team (Late st Contact Info) Description 06/10/2024 3:00 PM EST Office Visit 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 MEDICINE [address] [place] [address] Darwin Mccain MD [address] [place] [address] Pending Results Name Type Priority Associated Diagnoses Date /Time OCT, Retina - OU - Both Eyes Ophthalmology Routine Retinal drusen of both eyes 06/10/2024 4:22 PM EST documented as of this encounter Procedures Procedure Name Priority Date/Time Associated Diagnosis Comments OCT, RETINA - OU - BOTH EYES Routine 06/10/2024 4:22 PM EST Retinal drusen of both eyes documented in this encounter Visit Diagnoses Diagnosis Pigment dispersion syndrome of both eyes- Primary Dry eye syndrome of both eyes Retinal drusen of both eyes Presbyopia of both eyes documented in this encounter Additional Health Concerns Assessment Noted Time PHQ-9 Depression Total Score: 0 08/15/19 24 2:20 PM EDT documented as of this encounter Care Teams Neurology Stroke Physician Relationship Specialty Start Date End Date Darwin Mccain MD [address] [place] [address] PCP - General Internal Medicine 08/07/20 documented as of this encounter
--- OUTSIDE RECORDS SUMMARY | 2024-06-17 17:06 | XMS_ITS ---
Author Name Marcelino BRIANDAPetr Address [address] [place] [address] Phone [phone] [facility] Care Team Providers Care Wheel Worker Name Role Phone Petr Benson Unavailable [phone] Reason for Referral Not Available Allergies, adverse reactions, alerts No known allergies History of medication use Medication Class Instructions Start Date End Date Aspirin Adult Low Strength 81 mg Tab delayed rel TAKE 1 TABLET BY MOUTH EVERY MORNING 2021-11-23 No Data Available Iron 325 (65 Fe) MG Tab TAKE 1 TABLET BY MOUTH TWICE DAILY IN THE MORNING AND IN THE EVENING 2022-01-20 No Data Available Lovastatin 20 mg Tab TAKE 1 TABLET BY MO UTH AT BEDTIME 2021-11-23 No Data Available Medbox Status USE DIRECTED 2022-02-21 No Data Ioana ilable [id number]-6-[id number] Ethyl Esters 1 GM Cap TAKE 1 CAPSULE BY MOUTH TWICE DAILY IN THE MORNING AND IN THE EVENING 2021-11-09 No Data Available Valsartan 80 mg Tab TAKE 1 TABLET BY CARRIE TH EVERY MORNING 2021-11-23 No Data Available Alendronate Sodium 70 mg Tab take 1 tabl et once a week with 6 to 8 oz of water 30 min before first food of day. do not lie down for 30 minutes 2022-05-22 No Data Available predniSONE 20 mg Tab TAKE 2 TABLETS BY M OUTH ONCE DAILY IN THE MORNING 2023-02-13 2023-07-26 Mucus Relief 600 mg Tab ER 12hr TAKE 1 TABLET BY MOUTH TWICE DAILY FOR 7 DAYS. DO NOT BREAK, CRUSH, DISSOLVE OR CHEW 2023-03-06 No Data Available Diclofenac Sodium 1 % Gel APPLY 2 GRAMS TOPICALLY TO AFFECTED AREA(S) TWICE DAILY FOR 1 TO 2 WEEKS 2023-04-28 No Data Available Fluorouracil 5 % Crm APPLY TO THE AFFECT ED AREA(S) TWICE DAILY FOR 1 TO 2 WEEKS 2023-06-02 No Data Available amLODIPine Besylate 2.5 mg Tab Take 1 tablet daily. 2023-07-26 No Data Available Aspirin 81 mg Tab delayed rel take 1 tablet orally once daily 2023-07-26 No Data Available Tylenol Extra Strength 500 mg Tab 2 tablets orally one time TID PRN pain 2023-07-26 No Data Available Arnuity Ellipta 100 MCG/ACT Aerosol Powder Breath Activated INHALE 1 PUFF BY MOUTH EVERY DAY AT THE SAME TIME. RINSE MOUTH AFTER USING. DO NOT SWALLOW. 2023-11-20 No Data Available calcium 600 mg (as carbonate)-vitamin D3 5 mcg (200 unit) tablet TAKE 1 TABLET BY MOUTH EVERY MORNING 2023-06-27 No Data Available Fluticasone Propionate 50 MCG/ACT Suspension INSTILL 2 SPRAYS IN EACH NOSTRIL ONCE DAILY 2023-11-20 No Data Available Omeprazole 20 mg Cap delayed rel TAKE 1 CAPSULE BY MOUTH EVERY MORNING BEFORE BREAKFAST. DO NOT BREAK, CRUSH, DISSOLVE OR CHEW. 2024-03-21 No Data Available Problem List Problem Status Onset Date Resolved Date Mixed hyperlipidemia Active 2022-10-13 N/A Osteoporosis Active 2022-10-13 N/A Other problems related to [facility] facilities and other health care Active 2023-07-26 N/A Alzheimer disease Active 2022-10-13 N/A Chronic lung disease Active 2024-06-09 N/A Essential hypertension Active 2022-10-13 N/A GERD (gastroesophageal reflux disease) Active 02-07-01 N/A Encounters Encounters Type Facility Date of Service Diagnosis/Co mplaint New patient,40-59min; chronic exacerbation, 2 stable chronic or 1 acute illness add add modifier 95 for video (do not use for phone, instead use [id number]) [facility], ([place]) [place]13/2022 Alzheimer's disease, unspecifiedDementia in oth diseases classd elswhr w/o behavrl disturbEssential (primary) hypertensionMixed hyperlipidemiaAge-related osteoporosis without current pathological fracture New patient,40-59min; chronic exacerbation, 2 stable chronic or 1 acute illness add add modifier 95 for video (do not use for phone, instead use 63654-20) [facility], ([place]) 10[place]13/2022 New patient,40-59min; chronic exacerbation, 2 stable chronic or 1 acute illness add add modifier 95 for video (do not use for phone, instead use 78041-80) [facility], ([place]) 10/13/2022 New patient,40-59min; chronic exacerbation, 2 stable chronic or 1 acute illness add add modifier 95 for video (do not use for phone, instead use 51924-74) [facility] ([place] 10[place]13/2022 New patient,40-59min; chronic exacerbation, 2 stable chronic or 1 acute illness add add modifier 95 for video (do not use for phone, instead use 25682-55) [facility], ([place] 10[place]13/20[place] New patient,40-59min; chronic exacerbation, 2 stable chronic or 1 acute illness add add modifier 95 for video (do not use for phone, instead use 69423-31) [facility] ([place] 10[place]13/2022 New patient,40-59min; chronic exacerbation, 2 stable chronic or 1 acute illness add add modifier 95 for video (do not use for phone, instead use 52962-57) [facility], ([place] 10[place]13/2022 New patient,40-59min; chronic exacerbation, 2 stable chronic or 1 acute illness add add modifier 95 for video (do not use for phone, instead use 23086-82) [facility], ([place] 10[place]13/2022 New patient,40-59min; chronic exacerbation, 2 stable chronic or 1 acute illness add add modifier 95 for video (do not use for phone, instead use 17130-21) [facility], ([place] 10[place]13/2022 New patient,40-59min; chronic exacerbation, 2 stable chronic or 1 acute illness add add modifier 95 for video (do not use for phone, instead use 43841-65) [facility], ([place] 10[place]13/2022 Estab. patient 30-39min; chronic exacerbation, 2 stable chronic or 1 acute illness add add modifier 95 for video, (do not use for phone, instead use 75443-94) [facility], ([place]) 07/26/2023 Alzheimer's disease, unspecifiedDementia in oth diseases classd elswhr w/o behavrl disturbEssential (primary) hypertensionMixed hyperlipidemiaOther problems related to medical facilities and other health careAge-related osteoporosis without current pathological fracture Estab. patient 30-39min; chronic exacerbation, 2 stable chronic or 1 acute illness add add modifier 95 for video, (do not use for phone, instead use 97830-57) [facility] ([place] Estab. patient 30-39min; chronic exacerbation, 2 stable chronic or 1 acute illness add add modifier 95 for video, (do not use for phone, instead use 89167-64) [facility] ([place] 07[place]20[place] Estab. patient 30-39min; chronic exacerbation, 2 stable chronic or 1 acute illness add add modifier 95 for video, (do not use for phone, instead use 10481-71) [facility] ([place] 07[place]20[place] Estab. patient 30-39min; chronic exacerbation, 2 stable chronic or 1 acute illness add add modifier 95 for video, (do not use for phone, instead use 60668-71) [facility] ([place] 07[place]/20[place] Estab. patient 30-39min; chronic exacerbation, 2 stable chronic or 1 acute illness add add modifier 95 for video, (do not use for phone, instead use 81394-24) [facility] ([place] 07[place]20[place] Estab. patient 30-39min; chronic exacerbation, 2 stable chronic or 1 acute illness add add modifier 95 for video, (do not use for phone, instead use 41501-27) [facility] ([place] 07[place]20[place] Estab. patient 30-39min; chronic exacerbation, 2 stable chronic or 1 acute illness add add modifier 95 for video, (do not use for phone, instead use 40235-13) [facility] ([place] 07[place]20[place] Estab. patient 30-39min; chronic exacerbation, 2 stable chronic or 1 acute illness add add modifier 95 for video, (do not use for phone, instead use 39785-41) [facility] ([place] 07[place]20[place] Estab. patient 20-29min; 1 stable chronic or 2 minor; add add modifier 95 for video, modifier 93 for phone [facility] 06[place]/2024 Other problems related to medical facilities and other health careAlzheimer's disease, unspecifiedDementia in oth diseases classd elswhr w/o behavrl disturbEssential (primary) hypertensionMixed hyperlipidemiaAge-related osteoporosis without current pathological fractureOther disorders of lung Estab. patient 20-29min; 1 stable chronic or 2 minor; add add modifier 95 for video, modifier 93 for phone [facility], ([place]) 06/07/2024 Estab. patient 20-29min; 1 stable chronic or 2 minor; add add modifier 95 for video, modifier 93 for phone [facility], ([place]) 06/07/2024 Estab. patient 20-29min; 1 stable chronic or 2 minor; add add modifier 95 for video, modifier 93 for phone [facility], ([place] 06/07/2024 Estab. patient 20-29min; 1 stable chronic or 2 minor; add add modifier 95 for video, modifier 93 for phone [facility], ([place]) 06/07/2024 Estab. patient 20-29min; 1 stable chronic or 2 minor; add add modifier 95 for video, modifier 93 for phone [facility], ([place] 06/07/2024 Estab. patient 20-29min; 1 stable chronic or 2 minor; add add modifier 95 for video, modifier 93 for phone [facility], ([place]) 06/07/2024 Body mass index (bmi) 27.0-27.9, adult Estab. patient 20-29min; 1 stable chronic or 2 minor; add add modifier 95 for video, modifier 93 for phone [facility], ([place]) 06/07/2024 Vital Signs Date of Collection Vitals 2022-10-13 11:16:27 Height - 149.86 cmWe ight - 62.14 kgBody Mass Index (BMI) - 27.67 kg/m2BP Diastolic - 68.0 mm[Hg]BP Systolic - 112.0 mm[Hg]Pain Scale - 0.0 {score} 2023-07-26 15:15:39 Height - 149.86 cmWe ight - 62.14 kgBody Mass Index (BMI) - 27.67 kg/m2BP Diastolic - 80.0 mm[Hg]BP Systolic - 130.0 mm[Hg] 2024-06-07 14:39:36 Height - 149.86 cmWe ight - 62.14 kgBody Mass Index (BMI) - 27.67 kg/m2 Social History Social History Social History Observation Description Effec tive Time Current Smoking Status Never smoker 2024-06-08 0 Sex Female History of Procedures Procedures Service Procedure code Service date Servicing provider Phone# New patient,40-59min; chronic exacerbation, 2 stable chronic or 1 acute illness add add modifier 95 for video (do not use for phone, instead use [id number]) 00742 2022-10-13 No Data Available No Data Availa ble Functional Status Assessed (1170F) 1170F 2022-10-13 No Data Available No Data Avail able Medication List Documented (1159F) 1159F 2022-10-13 No Data Available No Data Ioana ilable Medication Review by prescribing provider or pharmacist documented (1160F) 1160F 2022-10-13 No Data Available No Data Ioana ilable Pain Assessment - NO pain present (1126F) 1126F 2022-10-13 No Data Available No Data A vailable BMI obtained (3008F) 3008F 2022-10-13 No Data Availab le No Data Available SBP < 130 (3074F) 3074F 2022-10-13 No Data Available No Data Available DBP <80 (3078F) 3078F 2022-10-13 No Data Available No Data Available Advance Care Directive Advance care planning discussion documented in the medical record (1158F) 1158F 2022-10-13 No Data Available No Data Availa ble Advance care planning discussed and documented ? advance care plan or surrogate decision-maker was documented in the medical record. (1123F) 1123F 2022-10-13 No Data Available No Data Availa ble Estab. patient 30-39min; chronic exacerbation, 2 stable chronic or 1 acute illness add add modifier 95 for video, (do not use for phone, instead use 55311-20) 91765 2023-07-26 No Data Available No Data Availa ble Medication List Documented (1159F) 1159F 2023-07-26 No Data Available No Data Ioana ilable Medication Review by prescribing provider or pharmacist documented (1160F) 1160F 2023-07-26 No Data Available No Data Ioana ilable Pain Assessment - NO pain present (1126F) 1126F 2023-07-26 No Data Available No Data A vailable Advance Care Directive Advance care planning discussion documented in the medical record (1158F) 1158F 2023-07-26 No Data Available No Data Availa ble BMI obtained (3008F) 3008F 2023-07-26 No Data Availab le No Data Available SBP 130-139 (3075F) 3075F 2023-07-26 No Data Availabl e No Data Available DBP 80-89 (3079F) 3079F 2023-07-26 No Data Available No Data Available Advance care planning discussed and documented ? advance care plan or surrogate decision-maker was documented in the medical record. (1123F) 1123F 2023-07-26 No Data Available No Data Availa ble Estab. patient 20-29min; 1 stable chronic or 2 minor; add add modifier 95 for video, modifier 93 for phone 50571 2024-06-07 No Data Available No Data Availa ble Medication List Documented (1159F) 1159F 2024-06-07 No Data Available No Data Ioana ilable Medication Review by prescribing provider or pharmacist documented (1160F) 1160F 2024-06-07 No Data Available No Data Ioana ilable Functional Status Assessed (1170F) 1170F 2024-06-07 No Data Available No Data Avail able Advance Care Directive Advance care planning discussion documented in the medical record (1158F) 1158F 2024-06-07 No Data Available No Data Availa ble Advance care planning discussed and documented ? advance care plan or surrogate decision-maker was documented in the medical record. (1123F) 1123F 2024-06-07 No Data Available No Data Availa ble Pain Assessment - NO pain present (1126F) 1126F 2024-06-07 No Data Available No Data A vailable BMI obtained (3008F) 3008F 2024-06-07 No Data Availab le No Data Available Functional Status Functional Category Effective Dates ambulates with cane, sometimes 6 [employer] is her daughter 2022-10-13 IADL: needs help with ALL IADLs Falls in last 6 Months: yes 10/12/22 mechanical fall -tripped over something at home. fell on her knees 2022-10-13 Denies using assistive devices. Falls in last 6 Months: No 2023-07-26 IADL: Medication Independent , Meal Prep Independent , Shopping Independent , Driving or Public Transport Independent , Housework Independent and Finances Independent 2023-07-26 Cognition Status: Oriented to Person, Pl chrystal and Time 2023-07-26 ADL: Bathing Independent , D ressing Independent , Eating Independent , Ambulation Independent , Transferring Independent and Toileting Independent 2023-07-26 Mental Status Status Date forgetful 2022-10-13 AA&O x 3 2024-06-07 Assessments Date of Service Assessments 2022-10-13 11:16:27 Alzheimer diseaseEss ential hypertensionMixed hyperlipidemiaOsteoporosis 2023-07-26 15:15:39 Other problems relat ed to medical facilities and other health careAlzheimer diseaseEssential hypertensionMixed hyperlipidemiaOsteoporosis 2024-06-07 14:39:36 Other problems relat ed to medical facilities and other health careAlzheimer diseaseEssential hypertensionMixed hyperlipidemiaOsteoporosisChronic lung diseaseGERD (gastroesophageal reflux disease) Plan of Care Date of Service Plans 2022-10-13 11:16:27 Medication Review by prescribing provider or pharmacist documented (1160F)Medication List Documented (1159F)Functional Status Assessed (1170F)Advance Care Directive Advance care planning discussion documented in the medical record (1158F)BMI obtained (3008F)SBP < 130 (3074F)DBP <80 (3078F)Televideo new patient,40-59min; chronic exacerbation, 2 stable chronic or 1 acute illness add modifier 95Advance care planning discussed and documented ? advance care plan or surrogate decision-maker was documented in the medical record. (1123F)Pain Assessment - NO pain documented (1126F)Continue to see PCP. Follow-up with [facility] as needed for any acute or disease education needs that may arise.MDP: 05/31/2022 Alzheimer's disease, unspecified10/13/22: FAST score- 4 Daughter Amy Prieto is [employer] and HCPcontinue to monitor memory changesreport sudden increase in confusionamlodipine, valsartan, lovastatinbp controlled c above Recommend DASH diet. Increase exercise to 30-45 min q day. Eat a healthy diet: try to eat whole foods, green leafy vegetables and whole grains. Decrease fast foods and processed foods. Decrease sugary drinks, stop soda intake. Limit ETOH intake. If you smoke, quit smoking. Decrease caffeine intake. Decrease stress by: meditating, deep breathing, laughing, going for walks. Monitor BP at home: keep a BP journal. Record you BP's in the AM and after dinner; bring your log in next visit.lovastatinAdvised to eat a healthy diet include emphasizing fruits, vegetables, whole grains, poultry, fish and nuts and limiting sugary foods and beverages. Eating this way may help increase fiber, which is also beneficial. A diet high in fiber can help lower cholesterol levels by as much as 10 percent. DASH diet. Increase exercise to 30-45 min q day. Decrease sugary drinks, stop soda intake. Limit ETOH intake. If you smoke, quit smoking.alendronate, calcium +Vit [id number] weight bearing exercise for bone healthat risk for fxambulates slowly and uses assistive devices 2023-07-26 15:15:39 Medication Review by prescribing provider or pharmacist documented (1160F)Medication List Documented (1159F)Functional Status Assessed (1170F)Advance Care Directive Advance care planning discussion documented in the medical record (1158F)BMI obtained (3008F)SBP < 130 (3074F)DBP <80 (3078F)Televideo 30-39min; chronic exacerbation, 2 stable chronic or 1 acute illness add modifier 95Advance care planning discussed and documented in the medical record ? beneficiary/patient did not wish to or was unable to provide an advance care plan or name a surrogate decision-maker. (1124F)Pain Assessment - NO pain documented (1126F)Continue to see PCP. Follow-up with [facility] as needed for any acute or disease education needs that may arise.CONTINGENCY PLANDementia Member to call for the following symptoms: Urinating more often/ Confusion or change in behavior/ Increased agitationPlanned intervention: Place order for urinalysis and culture; family to take sample to lab/ Encourage increased fluid intake/ Assess for UTI symptoms; if present, start Bactrim DS BID x3 days/ Limit extra stimulationStableDaughter Amy Prieto is [employer] and HCPcontinue to monitor memory changesMonitor for sudden increase in confusion Continue monitoring with PCP.Stableamlodipine, valsartan, lovastatinRecommend DASH diet. Increase exercise to 30-45 min q day. Eat a healthy diet: try to eat whole foods, green leafy vegetables and whole grains. Decrease fast foods and processed foods. Decrease sugary drinks, stop soda intake. Limit ETOH intake. If you smoke, quit smoking. Decrease caffeine intake. Decrease stress by: meditating, deep breathing, laughing, going for walks. Monitor BP at home: keep a BP journal. Record you BP's in the AM and after dinner; bring your log in next visit.StablelovastatinAdvised to eat a healthy diet include emphasizing fruits, vegetables, whole grains, poultry, fish and nuts and limiting sugary foods and beverages. Eating this way may help increase fiber, which is also beneficial. A diet high in fiber can help lower cholesterol levels by as much as 10 percent. DASH diet. Increase exercise to 30-45 min q day. Decrease sugary drinks, stop soda intake. Limit ETOH intake. If you smoke, quit smoking.Stablealendronate, calcium +Vit Q3yosgoywni weight bearing exercise for bone healthat risk for fxambulates slowly and uses assistive devices Continue with PCP. 2024-06-07 14:39:36 Functional Status As sessed (1170F)Advance Care Directive Advance care planning discussion documented in the medical record (1158F)Advance care planning discussed and documented ? advance care plan or surrogate decision-maker was documented in the medical record. (1123F)Estab. patient 20-29min; 1 stable chronic or 2 minor; add add modifier 95 for video, modifier 93 for phoneMedication List Documented (1159F)Medication Review by prescribing provider or pharmacist documented (1160F)BMI obtained (3008F)Pain Assessment - NO pain present (1126F)Continue to see PCP. Follow-up with [facility] as needed for any acute or disease education needs that may arise.CONTINGENCY PLANDementia Member to call for the following symptoms: Urinating more often/ Confusion or change in behavior/ Increased agitationPlanned intervention: Place order for urinalysis and culture; family to take sample to lab/ Encourage increased fluid intake/ Assess for UTI symptoms; if present, start Bactrim DS BID x3 days/ Limit extra stimulationStableDaughter Amy Prieto is [employer] and HCPcontinue to monitor memory changesMonitor for sudden increase in confusion Continue monitoring with PCP.Stableamlodipine, valsartanRecommend DASH diet. Increase exercise to 30-45 min q day. Eat a healthy diet: try to eat whole foods, green leafy vegetables and whole grains. Decrease fast foods and processed foods. Decrease sugary drinks, stop soda intake. Limit ETOH intake. If you smoke, quit smoking. Decrease caffeine intake. Decrease stress by: meditating, deep breathing, laughing, going for walks. Monitor BP at home: keep a BP journal. Record you BP's in the AM and after dinner; bring your log in next visit.StablelovastatinAdvised to eat a healthy diet include emphasizing fruits, vegetables, whole grains, poultry, fish and nuts and limiting sugary foods and beverages. Eating this way may help increase fiber, which is also beneficial. A diet high in fiber can help lower cholesterol levels by as much as 10 percent. DASH diet. Increase exercise to 30-45 min q day. Decrease sugary drinks, stop soda intake. Limit ETOH intake. If you smoke, quit smoking.Stablealendronate, calcium +Vit H4yfvhssquo weight bearing exercise for bone healthat risk for fxambulates slowly and uses assistive devices Continue with PCP.StableArnuity EliptaDenies recent SOBMonitor for ssx of respiratory distress (eg. SOB) and continue f/u with PCP.StableOmeprazoleDietary and lifestyle interventions reviewed and continue f/u care with PCP. Goals Date Goal 2023-07-26 Remember to adhere t o dietary interventions and exercise as tolerable. 2023-07-26 Contact us if develo ping hypertensive s/sx or acute change in mental status. 2023-07-26 Continue taking medi cations as prescribed and f/u care and monitoring with PCP every 3-6 months. 2024-06-07 Remember to adhere t o dietary interventions and exercise as tolerable. 2024-06-07 Contact us if develo ping SOB, acute change in mental status, HTN s/sx (eg. Blurry vision, headaches, palpitations), fall, or health-related concerns. 2024-06-07 Continue taking medi cations as prescribed and f/u care and monitoring with PCP rachna 3-6 months. Health Concerns Date Concern 2024-06-07 Visit completed yevgeniy de leon audio/video.Patient/Guardian agreed to visit via telehealth. Today, patient has chief complaint of: follow up care and comprehensive review.Reviewed Allergies, Medications, Active Medical conditions, past medical/surgical history, Social history. 2024-06-07 ACP: unknown. HCP: Elizabeth Prieto (daughter) . Full code. 2024-06-07 Most recent hospital stay(s) or ER visit(s) and precipitating factors: denies in the last month. 2024-06-07 Informed verbal cons ent was obtained from this patient to communicate and provide care using virtual and other telecommunications tools. This patient has been explained the risks, if any, related to the encounter. I explained that care provided through video or audio communication cannot replace the need for physical examination or an in-person visit for some disorders or urgent problems.
--- OUTSIDE RECORDS SUMMARY | 2024-06-17 17:06 | XMS_ITS | Encounter Summary ---
Author Organization [facility] Address [address] [place] [address] 7[address] [place] [address] Care Team Providers Care Nurses' Registry Director Name Role Phone Darwin Mccain MD Primary Care Provide r Encounter Details Date Type Department Care Team (Late st Contact Info) Description 05/20/2022 Orders Only [facility] CHC MED & PEDS [address] [place] [address] Francisca Shanks LPN Social History Tobacco Use Types Packs/Day Years Used Date Smoking Tobacco: Never Assessed Comments Unknown Sex and Gender Information Value [...] Description 08/13/2024 2:15 PM EDT Office Visit [facility] MEDICINE [address] [place] [address] Darwin Mccain MD [address] [place] [address] documented as of this encounter Visit Diagnoses Not on filedocumented in this encounter Care Teams Nurses' Registry Director Relationship Specialty Start Date End Date Darwin Mccain MD [address] [place] [address] PCP - General Internal Medicine 08/07/20 documented as of this encounter
== END 2024-06-17 14:56 | disposition home or self-care (01) ==
LOC: HO.MAMMO 14:55
PROVIDERS: PCP Internal Medicine; Visit Provider Internal Medicine
DX: Z12.31 Encounter for screening mammogram for malignant neoplasm of breast (principal)
CPT/HCPCS: 77063; 77067

== ENCOUNTER → 2024-06-17 15:15 | Outpatient (BNV) | payer OTHER, SELFPAY | PROVIDERS: PCP Internal Medicine; Visit Provider Internal Medicine | DX: Z12.31 Encounter for screening mammogram for malignant neoplasm of breast (principal) | CPT/HCPCS: 77063; 77067 ==

== ENCOUNTER 2024-08-12 08:09 | Outpatient (REF) | payer OTHER, SELFPAY ==
--- OUTSIDE RECORDS SUMMARY | 2024-08-12 08:21 | XMS_ITS ---
Author Name Marcelino BRIANDAPetr Address [address] [place] [address] Phone [phone] [facility] Care Team Providers Care Baker Operator Automatic Name Role Phone Petr Benson Unavailable [phone] Reason for Referral Not Available Allergies, adverse [...] USE DIRECTED 2022-02-21 No Data Ioana ilable [id number] Ethyl Esters 1 GM Cap TAKE 1 [...] Active 2022-10-13 N/A Other problems related to [facility] facilities and other health care Active 2023-07-26 [...] (do not use for phone, instead use [id number]) [facility] Alzheimer's disease, unspecifiedDementia in oth diseases classd elswhr w/o behavrl disturbEssential (primary) hypertensionMixed hyperlipidemiaAge-related osteoporosis without current pathological fracture New patient,40-59min; chronic exacerbation, 2 stable chronic or 1 acute illness add add modifier 95 for video (do not use for phone, instead use 79987-11) [facility] New patient,40-59min; chronic exacerbation, 2 stable chronic or 1 acute illness add add modifier 95 for video (do not use for phone, instead use 63172-44) [facility]13[place] New patient,40-59min; chronic exacerbation, 2 stable chronic or 1 acute illness add add modifier 95 for video (do not use for phone, instead use 51492-35) [facility] New patient,40-59min; chronic exacerbation, 2 stable chronic or 1 acute illness add add modifier 95 for video (do not use for phone, instead use 65066-85) [facility]13[place]20[place] New patient,40-59min; chronic exacerbation, 2 stable chronic or 1 acute illness add add modifier 95 for video (do not use for phone, instead use 05312-41) [facility] 10[place]13[place]20[place] New patient,40-59min; chronic exacerbation, 2 stable chronic or 1 acute illness add add modifier 95 for video (do not use for phone, instead use 08694-59) [facility] 10[place]13[place]20[place] New patient,40-59min; chronic exacerbation, 2 stable chronic or 1 acute illness add add modifier 95 for video (do not use for phone, instead use 76983-66) [facility] 10[place]13/20[place] New patient,40-59min; chronic exacerbation, 2 stable chronic or 1 acute illness add add modifier 95 for video (do not use for phone, instead use 48287-93) [facility] 10[place]13[place]20[place] New patient,40-59min; chronic exacerbation, 2 stable chronic or 1 acute illness add add modifier 95 for video (do not use for phone, instead use 10988-04) [facility] 10[place]13[place]20[place] Estab. patient 30-39min; chronic exacerbation, 2 stable chronic or 1 acute illness add add modifier 95 for video, (do not use for phone, instead use 22487-17) [facility] 07[place]26[place]2023 Alzheimer's disease, unspecifiedDementia in oth diseases classd elswhr w/o behavrl disturbEssential (primary) hypertensionMixed hyperlipidemiaOther problems related to medical facilities and other health careAge-related osteoporosis without current pathological fracture Estab. patient 30-39min; chronic exacerbation, 2 stable chronic or 1 acute illness add add modifier 95 for video, (do not use for phone, instead use 68468-26) [facility] Estab. patient 30-39min; chronic exacerbation, 2 stable chronic or 1 acute illness add add modifier 95 for video, (do not use for phone, instead use 23194-11) [facility] Estab. patient 30-39min; chronic exacerbation, 2 stable chronic or 1 acute illness add add modifier 95 for video, (do not use for phone, instead use 81026-54) [facility]20[place] Estab. patient 30-39min; chronic exacerbation, 2 stable chronic or 1 acute illness add add modifier 95 for video, (do not use for phone, instead use 52106-01) [facility]20[place] Estab. patient 30-39min; chronic exacerbation, 2 stable chronic or 1 acute illness add add modifier 95 for video, (do not use for phone, instead use 00741-44) [facility]2023 Estab. patient 30-39min; chronic exacerbation, 2 stable chronic or 1 acute illness add add modifier 95 for video, (do not use for phone, instead use 11315-85) [facility] 07[place]2023 Estab. patient 30-39min; chronic exacerbation, 2 stable chronic or 1 acute illness add add modifier 95 for video, (do not use for phone, instead use 78519-69) [facility] 07[place]2023 Estab. patient 30-39min; chronic exacerbation, 2 stable chronic or 1 acute illness add add modifier 95 for video, (do not use for phone, instead use 67442-48) [facility]20[place] Estab. patient 20-29min; 1 stable chronic or 2 minor; add add modifier 95 for video, modifier 93 for phone [facility] 06[place]07/2024 Alzheimer's disease, unspecifiedDementia in oth diseases classd elswhr w/o behavrl disturbEssential (primary) hypertensionMixed hyperlipidemiaOther problems related to medical facilities and other health careAge-related osteoporosis without current pathological fractureOther disorders of lungGastro-esophageal reflux disease without esophagitis Estab. patient 20-29min; 1 stable chronic or 2 minor; add add modifier 95 for video, modifier 93 for phone [facility] Estab. patient 20-29min; 1 stable chronic or 2 minor; add add modifier 95 for video, modifier 93 for phone [facility] 06[place]07/2024 Estab. patient 20-29min; 1 stable chronic or 2 minor; add add modifier 95 for video, modifier 93 for phone [facility] 06/07/2024 Estab. patient 20-29min; 1 stable chronic or 2 minor; add add modifier 95 for video, modifier 93 for phone [facility] 06/07/2024 Estab. patient 20-29min; 1 stable chronic or 2 minor; add add modifier 95 for video, modifier 93 for phone [facility] 06/07/2024 Vital Signs Date of Collection Vitals [...] tive Time Current Smoking Status Never smoker 5 Sex Female History of Procedures Procedures Service Procedure code Service date Servicing provider Phone# New patient,40-59min; chronic exacerbation, 2 stable chronic or 1 acute illness add add modifier 95 for video (do not use for phone, instead use 45061-29) [id number] 2022-10-13 No Data Available No Data Availa [...] (do not use for phone, instead use 86029-47) [id number] 2023-07-26 No Data Available No Data Availa [...] 95 for video, modifier 93 for phone 14059 2024-06-07 No Data Available No Data Availa [...] Available No Data Availa ble Functional Status Functional Category Effective Dates ambulates with cane, sometimes 6 APPOINTMENT SETTER is her daughter 2022-10-13 IADL: needs help [...] FAST score- 4 Daughter Amy Prieto is APPOINTMENT SETTER and HCPcontinue to monitor memory changesreport sudden [...] If you smoke, quit smoking.alendronate, calcium +Vit C7uxipgdqaz weight bearing exercise for bone healthat risk [...] days/ Limit extra stimulationStableDaughter Amy Prieto is APPOINTMENT SETTER and HCPcontinue to monitor memory changesMonitor for [...] If you smoke, quit smoking.Stablealendronate, calcium +Vit Q9fbqtizoas weight bearing exercise for bone healthat risk [...] BID x3 days/ Limit extra stimulationStableDaughter Amy Conner is APPOINTMENT SETTER and HCPcontinue to monitor memory changesMonitor for [...] If you smoke, quit smoking.Stablealendronate, calcium +Vit Z5hfhhpldox weight bearing exercise for bone healthat risk [...] and f/u care and monitoring with PCP eery 3-6 months. Health Concerns Date Concern 2024-06-07 Visit completed usin g audio/video.Patient/Guardian agreed to visit via telehealth. Today, [...]
--- OUTSIDE RECORDS SUMMARY | 2024-08-12 08:21 | XMS_ITS | Encounter Summary ---
Author Organization [employer] Address [address] [place] [address] [address] [place] [address] Care Team Providers Care Rebar Bender Name Role Phone Darwin Mccain MD Primary Care Provide r Reason for Visit * Reason Onset Date Comments chart prep 08/09/2024 Encounter Details Date Type Department Care Team ([facility] st Contact Info) Description 08/09/2024 Telephone [facility] MEDICINE [address] [place], [place] [phone] Darwin Mccain MD [address] [place], [place] [phone] chart prep Social History Tobacco Use Types Packs/Day Years [...] AM EDT documented as of this encounter Miscellaneous Notes * Telephone Encounter - Jess Lindquist [place] - 08/09/2024 2:24 PM EDT ..Chart Prep Labs: not applicable Images: not applicable Vaccines due: Covid Due and RSV in Pharmacy Due Referrals: Not Applicable Screenings: Not Applicable Overdue care gaps: Sbirt, PQ9, Disability , and Oral Health documented in this encounter Plan of Treatment Upcoming Encounters Date Type Department Care Team (Late st Contact Info) Description 08/13/2024 2:15 PM EDT Office Visit [facility] MEDICINE [address] [place] [address] Darwin Mccain MD [address] [place] [address] documented as of this encounter Visit Diagnoses Not on filedocumented in this encounter Additional Health Concerns Assessment Noted Time PHQ-9 Depression Total Score: 0 08/15/19 24 2:20 PM EDT documented as of this encounter Care Teams Rebar Bender Relationship Specialty Start Date End Date Darwin Mccain MD [address] [place] [address] PCP - General Internal Medicine 08/07/20 documented as of this encounter
--- OUTSIDE RECORDS SUMMARY | 2024-08-12 08:21 | XMS_ITS | Clinical Summary ---
Author Organization [employer] Address [address] [place] [address] [address] [place] [address] Care Team Providers Care Supervisor Telephone Information Name Role Phone Darwin Mccain MD Primary Care Provide r Allergies Active Allergy Reactions Criticality Noted Date Comments Alitraq 03/22/2012 Lorazepam 03/22/2012 Medications FeroSul 325 (65 Fe) MG tablet [...] 01/07/20 23 Active Diclofenac Sodium 1 % creamIndication s:Actinic keratoses Apply twice daily for 1-2 weeks 120 g 04/28/19 24 Active fluorouracil (Efudex) 5 % creamIndication s:Actinic keratoses Apply topically 2 times daily. For 1-2 weeks 40 g 06/02/19 24 Active albuterol 108 (90 Base) MCG/ACT inhaler Inhale 2 puffs every 6 (six) hours if needed for wheezing. 18 g 11/20/19 24 025 Active fluticasone furoate (Arnuity Ellipta) 100 MCG/ACT inhaler Inhale 1 puff Once per day. Rinse mouth with water after use to reduce aftertaste and incidence of candidiasis. Do not swallow. 1 each 11/20/19 24 025 Active alendronate (Fosamax) 70 MG tabletIndicatio ns:Osteoporosis , unspecified osteoporosis type, unspecified pathological fracture presence TAKE 1 TABLET BY MOUTH ONCE A WEEK WITH 6 TO 8 OZ OF WATER 30 MINUTES BEFORE FIRST FOOD OF DAY. DO NOT LIE DOWN FOR 30 MINUTES. 12 tablet 1 04/15/19 25 Active fluticasone (Flonase) 50 MCG/ACT nasal spray INSTILL 2 SPRAYS IN EACH NOSTRIL ONCE DAILY 16 g 2 06/04/19 25 Active Calcium Carb-Cholecalci ferol (Calcium + Vitamin D3) 600-5 MG-MCG tabletIndicatio ns:Age-related osteoporosis without current pathological fracture Take 1 tablet by mouth in the morning. 60 tablet 11 07/13/19 25 Active amLODIPine (Norvasc) 2.5 MG tablet TAKE 1 TABLET BY MOUTH EVERY MORNING 30 tablet 07/31/19 25 Active valsartan (Diovan) 80 MG tablet TAKE 1 TABLET BY MOUTH EVERY MORNING 30 tablet 07/31/19 25 Active lovastatin (Mevacor) 20 MG tablet TAKE 1 TABLET BY MOUTH AT BEDTIME 30 tablet 07/31/19 25 Active amLODIPine (Norvasc) 5 MG tablet TAKE 1 TABLET BY MOUTH EVERY MORNING 30 tablet 07/31/19 25 Active omeprazole (PriLOSEC) [address] capsuleIndicati ons:Gastroesoph ageal reflux disease without esophagitis TAKE 1 CAPSULE BY MOUTH EVERY MORNING BEFORE BREAKFAST. DO NOT BREAK, CRUSH, DISSOLVE OR CHEW. 30 capsule 3 07/31/19 25 Active omega-3 acid ethyl esters (Lovaza) 1 g capsule TAKE 1 CAPSULE BY MOUTH TWICE DAILY IN THE MORNING AND IN THE EVENING 180 capsule 1 07/31/19 25 Active aspirin (Aspirin Low Dose) 81 MG EC tablet TAKE 1 TABLET BY MOUTH EVERY DAY 30 tablet 07/31/19 25 Active amLODIPine (Norvasc) 2.5 MG tablet TAKE 1 TABLET BY MOUTH EVERY MORNING 30 tablet 07/20/19 24 025 Discontinued lovastatin (Mevacor) 20 MG tablet TAKE 1 TABLET BY MOUTH AT BEDTIME 30 tablet 07/20/19 24 025 Discontinued amLODIPine (Norvasc) 5 MG tablet TAKE 1 TABLET BY MOUTH EVERY MORNING 30 tablet 07/20/19 24 025 Discontinued valsartan (Diovan) 80 MG tablet TAKE 1 TABLET BY MOUTH EVERY MORNING 30 tablet 11 07/20/19 24 025 Discontinued omega-3 acid ethyl esters (Lovaza) 1 g capsule TAKE 1 CAPSULE BY MOUTH TWICE DAILY IN THE MORNING AND IN THE EVENING 180 capsule 1 01/23/20 24 025 Discontinued omeprazole OTC (PriLOSEC OTC) 20 MG EC tabletIndicatio ns:Gastroesopha geal reflux disease without esophagitis Take 1 tablet (20 mg) by mouth before breakfast. Do not crush, chew, or split. 30 tablet 3 03/21/20 24 025 Discontinued aspirin (Aspirin Low Dose) 81 MG EC tablet Take 1 tablet (81 mg) by mouth in the morning. 90 tablet 04/02/20 025 Discontinued(R eorder (will not trigger notification to Pharmacy)) omeprazole (PriLOSEC) [address] capsule TAKE 1 CAPSULE BY MOUTH EVERY MORNING BEFORE BREAKFAST. DO NOT BREAK, CRUSH, DISSOLVE OR CHEW. 05/07/19 025 Discontinued(T herapy completed) Active Problems Problem Noted Date Diagnosed Date [...] PM EST): Resolved Under the care of Aircraft Engine Specialist, last seen 01/20/2022 both GI and Hematology. multifactorial, initially there was a component of iron deficiency. Aircraft Engine Specialist thinks might be chronic disease Repeat CBC [...] Encounters Date Type Department Care Team Description 08/09/2024 Telephone [facility] MEDICINE [address] [place] [address] Darwin Mccain MD chart prep 07/31/2024 Patient Outreach [facility] MED & PEDS [address] [place] [address] Darwin Mccain MD Pre-visit Planning (SDOH negative, Tobacco screening negative. ) 07/29/2024 Refill [facility] MEDICINE [address] [place] [address] Darwin Mccain MD 07/28/2024 Refill [facility] MEDICINE [address] [place] [address] Darwin Mccain MD Gastroesophageal reflux disease without esophagitis 07/12/2024 Refill [facility] MEDICINE [address] [facility] [place] [address] Darwin Mccain MD Age-related osteoporosis without current pathological fracture 06/17/2024 Orders Only [facility] MEDICINE [address] [place] [address] Darwin Mccain MD 06/10/2024 3:00 PM EST Office Visit [facility] OPTOMETRY [address] [place] [address] Venkatesh, Coco, OD 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); Dry eye syndrome of both eyes; Macular drusen, right; 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; Pseudophakia of both eyes; Presbyopia of both eyes 06/10/2024 Travel 06/04/2024 Refill [facility] WALK-IN CENTER [address] [place] [address] Darwin Mccain MD from Last 3 Months Immunizations Name Administration [...] Description 08/13/2024 2:15 PM EDT Office Visit [facility] MEDICINE [address] [place], [place] [phone] Darwin Mccain MD [address] [place], [place] [phone] Health Maintenance Due Date Last Done Comments Alcohol/Substance Use Screening 1952 RSV Patients and Patients Aged 60 years or older (1 - 1-dose 75+ series) 2016 COVID-19 Vaccine ( season) 2023 03/24/2022, 04/21/2021, 06/18/2020, Additional history exists Depression Screening 08/14/2024 08/15/2023, 08/15/19 24 Mammogram 06/17/2025 06/17/2024, 02/0 05/2023, 05/02/2022, Additional history exists Tobacco Screening 06/27/2025 06/27/2024 SDOH Screening 07/31/2025 07/31/2024 Lipid Panel 12/17/2028 12/18/2023, 03/10, 08/07/2020 DTaP/Tdap/Td [...] Procedure Name Priority Date/Time Associated Diagnosis Comments BI MAMMOGRAM SCREENING TOMOSYNTHESIS BILATERAL Routine 06/17/2024 3:00 PM EDT OCT, RETINA - OU - BOTH EYES Routine 06/10/2024 4:22 PM EST Macular drusen, right LIPID PANEL, STANDARD Routine 12/18/2023 8:11 AM EDT Essential hypertension Hypercholesterolem ia from Last 3 Months or Most Recently Relevant to Health Maintenance Results * BI Mammogram Screening Tomosynthesis Bilateral (06/17/2024 3:00 PM EDT) Anatomical Region Laterality Modality Breast Bilateral Mammography 06/17/2024 3:00 PM EDT Narrative 06/24/2024 6:22 PM EDT ? [facility] ? [address] ?[place] [address] ? Mammography Report ? Signed ? Patient: Dinah Minaya ?MR#: [id number] ?? 4 ? : 1940 ?Acct:[id number] ? Age/Sex: 83 / F ?ADM Date: 03/10/25 ? Loc: HO.MAMMO ? Attending Dr: Darwin Rosas MD ? Ordering Physician: Darwin Rosas MD ?Resu ?? lts: 1Negative ? Date of Service: 06/17/24 ?Follow Up: 1 Year From Orig ?? inal Mammogram ? Procedure(s): MM tomosynthesis screening BI ?? Accession Number(s): [id number] ? cc: Darwin Rosas MD ? EXAMINATION: ?? MM SCREENING DIGITAL BREAST TOMOSYNTHESIS, BILATERAL ? CLINICAL INFORMATION: ? Screening. Asymptomatic. ? COMPARISON: ?? Mammography: Comparison is made with available priors ? TECHNIQUE: ?? Digital breast mammography with tomosynthesis is performed in both the ?? craniocaudal and mediolateral oblique views along with computer-aided ?? detection (CAD). ? FINDINGS: ?? There are scattered areas of fibroglandular density (ACR BI-RADS breast ?? composition Category b). ? There are no significant masses, abnormal calcifications, or other ?? abnormalities. ? MM/MM tomosynthesis screening BI ?? IMPRESSION: ?? No mammographic evidence of malignancy. ? ASSESSMENT: ? BI-RADS BI-RADS 1 - Negative ? RECOMMENDATION: ?? Routine annual mammography screening. ? 1 year F/U ? This examination should not preclude the clinical evaluation of a ?? suspicious palpable abnormality. ? This patient's information was entered into a reminder system with a ?? target due date for their next mammogram. ? Electronically signed by: ??Annalisa Burkett DO ??06/24/2024 06:19 PM EDT ?? RP ? Dictated By: ?Annalisa Burkett DO ? Signed By: ?<Electronically signed by Annalisa Burkett, DO in OV> ? 06/24/241818 ? DD/ 1500 ? TD/TT: 06/17/24 1521 ? Technology Applications Teacher: ? Procedure Note Donotuseinterpreter, Image - 06/24/2024 [facility] [address] [place] [address] Mammography Report Signed Patient: Janel Minaya#: [id number] 4 : 2Acct:[id number] Age/Sex: 83 / FADM Date: 06/17/24 Loc: MAMMO Attending Dr: Darwin Rosas MD Ordering Physician: Darwin Rosas MDResu lts: 1Negative Date of Service: 06/17/24Follow Up: 1 Year From Orig inal Mammogram Procedure(s): MM tomosynthesis screening BI Accession Number(s): [id number] cc: Darwin Rosas MD EXAMINATION: MM SCREENING DIGITAL BREAST TOMOSYNTHESIS, BILATERAL CLINICAL INFORMATION: Screening. Asymptomatic. COMPARISON: Mammography: Comparison is made with available priors TECHNIQUE: Digital breast mammography with tomosynthesis is performed in both the craniocaudal and mediolateral oblique views along with computer-aided detection (CAD). FINDINGS: There are scattered areas of fibroglandular density (ACR BI-RADS breast composition Category b). There are no significant masses, abnormal calcifications, or other abnormalities. MM/MM tomosynthesis screening BI IMPRESSION: No mammographic evidence of malignancy. ASSESSMENT: BI-RADS BI-RADS 1 - Negative RECOMMENDATION: Routine annual mammography screening. 1 year F/U This examination should not preclude the clinical evaluation of a suspicious palpable abnormality. This patient's information was entered into a reminder system with a target due date for their next mammogram. Electronically signed by: Annalisa Burkett DO 06/24/2024 06:19 PM EDT Dictated By: Annalisa Burkett DO Signed By: <Electronically signed by Annalisa Burkett DO in OV> 06/24/24 1819 DD/ 1500 TD/TT: 06/17/24 1521 Technology Applications Teacher: Darwin Lindquist MD IMG BI PROCEDURES Fin al Result * (ABNORMAL) Lipid Panel, Standard (12/18/2023 8:11 AM EDT) Triglycerides 70 <150 mg/dL [facility] Comment:Desirable Triglyceri de: less than 150 mg/dLBorderline High Triglyceride 150-199 mg/dLHigh Triglyceride: 200-499 mg/dLVery High Triglyceride: greater than or equal to 5OO mg/dL Cholesterol 146 <200 mg/dL [facility] Comment:Desirable Cholestero l: less than 200 mg/dLBorderline High Cholesterol: 200-239 mg/dLHigh Cholesterol: greater than 239 mg/dL LDL Cholesterol Calculated 93 <100 mg/dL [facility] Comment:Desirable LDL: less than 100 mg/dLNear Optimal/Above Optimal LDL: 110- 129 mg/dLBorderline High LDL: 130-159 mg/dLHigh LDL: 160-189 mg/dLVery High LDL: greater than or equal to 190 mg/dL HDL Cholesterol 39(L) >40 mg/dL [facility] Comment:Desirable HDL: great er than 40 mg/dL Note: This HDL assay may give artificially low results in patients with liver disease. Blood Venous blood specimen / Unknown 12/18/2023 8:11 AM EDT 12/18/2023 11:32 AM EDT Darwin Lindquist MD LAB BLOOD ORDERABLES Final Result [facility] [address] [place] [phone] from Last 3 Months or Most Recently Relevant to Health Maintenance Insurance [facility] D[employer]PLETE Advance Directives Documents on File Type Date Recorded Patient Electric Wheelchair Repairer Expl anation Advance Directives and Living Will 03/22/2018 Health Care Proxy 03/22/18 Care Teams Supervisor Telephone Information Relationship Specialty Start Date End Date Darwin Mccain MD [address] [place] [address] PCP - General Internal Medicine 08/07/20
--- OUTSIDE RECORDS SUMMARY | 2024-08-12 08:21 | XMS_ITS | Encounter Summary ---
Author Organization [facility] Address [address] [place] [address] [address] [place] [address] Care Team Providers Care Pipeline Dispatcher Name Role Phone Darwin Mccain MD Primary Care Provide r Encounter Details Date Type Department Care Team (Late st Contact Info) Description 05/20/2022 Orders Only [facility] CHC MED & PEDS [address] [place] [address] Francisca Shanks LPN Social History Tobacco Use [...] Description 08/13/2024 2:15 PM EDT Office Visit [facility] MEDICINE [address] [place] [address] Darwin Mccain MD [address] [place] [address] documented as of this encounter Visit Diagnoses Not on filedocumented in this encounter Care Teams Pipeline Dispatcher Relationship Specialty Start Date End Date Darwin Mccain MD [address] [place] [address] PCP - General Internal Medicine 08/07/20 documented as of this encounter
--- OUTSIDE RECORDS SUMMARY | 2024-08-12 08:21 | XMS_ITS | Encounter Summary ---
Author Organization [employer] Address [address] [facility] [address] [place] [address] Care Team Providers Care Locomotive Engineer Diesel Name Role Phone Darwin Mccain MD Primary Care Provide r Reason for Visit * Reason Comments Med Refill Encounter Details Date Type Department Care Team (Late st Contact Info) Description 11/23/2023 Refill [facility] [address] [place], [place] [phone] Darwin Mccain MD [address] [place], [place] [phone] Onychomycosis of left great toe Social History [...] Description 08/13/2024 2:15 PM EDT Office Visit [facility] [address] [place] [address] Darwin Mccain MD [address] [place], [place] [phone] documented as of this encounter Visit Diagnoses Diagnosis Onychomycosis of left great toe documented in this encounter Additional Health Concerns Assessment Noted Time PHQ-9 Depression Total Score: 0 08/15/19 24 2:20 PM EDT documented as of this encounter Care Teams Locomotive Engineer Diesel Relationship Specialty Start Date End Date Darwin Mccain MD [address] [place] [address] PCP - General Internal Medicine 08/07/20 documented as of this encounter
[2024-08-12 11:47] LABS: Anion Gap 11 (12-20); Blood Urea Nitrogen 26 mg/dL (9-16); Calcium 8.6 mg/dL (8.4-10.2); Carbon Dioxide 29 mmol/L (22-29); Chloride 107 mmol/L (96-108); Estimated Glomerular Filt Rate > 60; Glucose Random 97 mg/dL (60-115); Potassium 4.3 mmol/L (3.3-5.1); Sodium 143 mmol/L (135-145)
== END 2024-08-12 08:10 | disposition home or self-care (01) ==
LOC: HO.HHCL 08:09
PROVIDERS: Visit Provider Internal Medicine
DX: I10 Essential (primary) hypertension (principal)
CPT/HCPCS: 36415; 80048

== ENCOUNTER 2024-08-13 14:48 | Outpatient (REF) | payer OTHER, SELFPAY ==
--- OUTSIDE RECORDS SUMMARY | 2024-08-13 16:02 | XMS_ITS | Encounter Summary ---
Author Organization [employer] Address [address] [facility] 7t [place] [address] Care Team Providers Care Pipeline Inspector Name Role Phone Darwin Mccain MD Primary Care Provide r Encounter Details Date Type Department Care Team (Latest Contact Info) Description 08/13/2024 Travel Social History Tobacco Use Types Packs/Day Years Used Date Smoking Tobacco: Never Passive Smoke Exposure: Never Smokeless Tobacco: Never Depression Answer Date Recorded Patient Health Questionnaire-9 Score 6 08/13/2024 Patient Health Questionnaire-9 Score 6 08/13/2024 Last PHQ-9: Questionnaire Data Not on file 0 08/13/2024 Housing Stability Answer Date Recorded What is your housing situation today? I have garland urbano 02/03/[address] you li [...] Answer Date Recorded Patient Health Questionnaire-2 Score 4 08/13/2024 Internet Access Answer Date Recorded Internet Access Q1 Yes 12/11/2023 Internet Access Q2 Not on file 12/11/2023 Comments Unknown Sex and Gender Information Value Date Recorded Sex Assigned at Female 02/07/2022 10:16 AM EDT Legal Sex Female 10:16 AM EDT Gender Identity Female 02/07/2022 10:16 AM EDT Sexual Orientation Straight 02/07/2022 10 :16 AM EDT documented as of this encounter Plan of Treatment Not on file documented as of this encounter Visit Diagnoses Not on filedocumented in this encounter Additional Health Concerns Assessment Noted Time PHQ-9 Depression Total Score: 6 08/14/19 25 2:21 PM EDT documented as of this encounter Care Teams Pipeline Inspector Relationship Specialty Start Date End Date Darwin Mccain MD [address] [place] [address] PCP - General Internal Medicine 08/07/20 documented as of this encounter
--- OUTSIDE RECORDS SUMMARY | 2024-08-13 16:02 | XMS_ITS | Encounter Summary ---
Author Organization [facility] [employer] Address [address] [facility] 7t [place] [address] Care Team Providers Care Satellite Specialist Name Role Phone Darwin Mccain MD Primary Care Provide r Encounter Details Date Type Department Care Team ([facility] st Contact Info) Description 08/13/2024 2:15 PM EDT Office Visit [facility] [address] [place], [place] [phone] Darwin Mccain MD [address] [place], [place] [phone] Essential hypertension (Primary Dx); Hypercholesterolemia; Alzheimer's disease ([facility]); Preventative health care Social History Tobacco Use Types Packs/Day Years [...] AM EDT documented as of this encounter Last Filed Vital Signs Vital Sign Reading Time Taken Comments Blood Pressure 138/78 08/13/2024 2:44 PM EDT Pulse 54 08/13/2024 2:19 PM EDT Temperature 36.1 ??C (96.9 ??F) 08/13/2024 2:19 PM ED T Respiratory Rate 20 08/13/2024 2:19 PM EDT Oxygen Saturation 99% 08/13/2024 2:19 PM EDT Inhaled Oxygen Concentration - - Weight 60.3 kg (133 lb) 08/13/2024 2:19 PM EDT Height 149.9 cm (4' 11 ) 08/13/2024 2:19 PM EDT Body Mass Index 26.86 08/13/2024 2:19 PM EDT documented in this encounter Progress Notes * Darwin Lindquist MD - 08/13/2024 2:15 PM EDT SUBJECTIVE Dinah Minaya is a 83 y.o. female who presents for No chief complaint on file.. Hypertension This is a chronic problem. Pertinent negatives include no chest pain, headaches or shortness of breath. Review of Systems Constitutional: Negative for fever. HENT: Negative for sore throat. Respiratory: Negative for cough and shortness of breath. Cardiovascular: Negative for chest pain. Gastrointestinal: Negative for abdominal pain. Neurological: Negative for headaches. Allergies Allergen Reactions Alitraq Lorazepam OBJECTIVE Vitals: 08/13/24 1419 08/13/24 1444 BP: (!) 140/70 138/78 BP Location: Left arm Patient Position: Sitting BP Cuff Size: Adult Pulse: 54 Resp: 20 Temp: 96.9 ??F (36.1 ??C) TempSrc: Oral SpO2: 99% Weight: 133 lb (60.3 kg) Height: 4' 11 (1.499 m) Physical Exam Vitals reviewed. Constitutional: Appearance: Normal appearance. HENT: Head: Normocephalic and atraumatic. Right Ear: External ear normal. Left Ear: External ear normal. Nose: Nose normal. Mouth/Throat: Mouth: Mucous membranes are moist. Eyes: Conjunctiva/sclera: Conjunctivae normal. Cardiovascular: Rate and Rhythm: Normal rate and regular rhythm. Pulmonary: Effort: Pulmonary effort is normal. Breath sounds: Normal breath sounds. Skin: General: Skin is warm. Neurological: Mental Status: She is alert. Mental status is at baseline. Assessment/Plan Problem List Items Addressed This Visit Essential hypertension - Primary Pt here for a follow up BP remains controlled She is on a regimen of: Norvasc 7.5 mg po daily and Diovan 80 mg po daily Most recent electrolytes, Bun and Creatinine done on: Lab Results Component Value Date NA 143 08/12/2024 NA 144 04/28/2023 K 4.3 08/12/2024 K 4.3 04/28/2023 CL 107 08/12/2024 CL 106 04/28/2023 BUN 26 (H) 08/12/2024 BUN 25 (H) 04/28/2023 CREATININE 0.72 08/12/2024 CREATININE 0.73 04/28/2023 were wnl. Plan: Continue with current regimen 4 month f/u patient advised to adhere to a low sodium diet, encouraged about medication compliance, counseled about weight loss. Hypercholesterolemia Patient with elevated lipids. Most recent lipid [...] counseled and educated about diet and exercise, Relevant Orders Lipid Panel, Standard Hepatic Function Panel Alzheimer's disease ([facility]) Doing well She used to be under the care of Neurology ( Dr [...] and mild MVD He stopped her Aricept Preventative health care Mammogram: 06/17/2024 Normal Pap Smear: Given age no need to continue Colonoscopy: 09/20/11 Dexa scan: 06/2015 Osteoporosis documented in this encounter Miscellaneous Notes * Assessment & Plan Note - Darwin Lindquist MD - 08/13/2024 2:48 PM EDT Associated Problem(s): Preventative health care Mammogram: 06/17/2024 Normal Pap Smear: Given age no need to continue Colonoscopy: 09/20/11 Dexa scan: 06/2015 Osteoporosis * Assessment & Plan Note - Darwin Lindquist MD - 08/13/2024 2:46 PM EDT Associated Problem(s): Alzheimer's disease ([facility]) Doing well She used to be under the care of Neurology ( Dr [...] and mild MVD He stopped her Aricept * Assessment & Plan Note - Darwin Lindquist MD - 08/13/2024 2:33 PM EDT Associated Problem(s): Hypercholesterolemia Patient with elevated lipids. Most recent lipid [...] counseled and educated about diet and exercise, * Assessment & Plan Note - Darwin Lindquist MD - 08/13/2024 2:32 PM EDT Associated Problem(s): Essential hypertension Pt here for a follow up BP remains controlled She is on a regimen of: Norvasc 7.5 mg po daily and Diovan 80 mg po daily Most recent electrolytes, Bun and Creatinine done on: Lab Results Component Value Date NA 143 08/12/2024 NA 144 04/28/2023 K 4.3 08/12/2024 K 4.3 04/28/2023 CL 107 08/12/2024 CL 106 04/28/2023 BUN 26 (H) 08/12/2024 BUN 25 (H) 04/28/2023 CREATININE 0.72 08/12/2024 CREATININE 0.73 04/28/2023 were wnl. Plan: Continue with current regimen 4 month f/u patient advised to adhere to a low sodium diet, encouraged about medication compliance, counseled about weight loss. documented in this encounter Plan of Treatment Scheduled Orders Name Type Priority Associated Diagnoses Orde r Schedule Lipid Panel, Standard Lab Routine Hypercholesterolemia Ordered: 08/13/2024 Hepatic Function Panel Lab Routine Hypercholesterolemia Ordered: 08/13/2024 documented as of this encounter Visit Diagnoses Diagnosis Essential hypertension- Primary Unspecified essential hypertension Hypercholesterolemia Pure hypercholesterolemia Alzheimer's disease ([facility]) Alzheimer's disease Preventative health care Routine general medical examination at a health care facility documented in this encounter Additional Health Concerns Assessment Noted Time PHQ-9 Depression Total Score: 6 08/14/19 25 2:21 PM EDT documented as of this encounter Care Teams Satellite Specialist Relationship Specialty Start Date End Date Darwin Mccain MD [address] [place] [address] PCP - General Internal Medicine 08/07/20 documented as of this encounter
--- OUTSIDE RECORDS SUMMARY | 2024-08-13 16:02 | XMS_ITS | Clinical Summary ---
Author Organization [employer] Address [address] [facility] 7[address] [place] [address] Care Team Providers Care Firewall Security Engineer Name Role Phone Darwin Mccain MD Primary [...] Most recent LFTs 08/2022 normal, will repeat Preventative health care 08/11/2022 Assessment & Plan (08/13/2024 2:48 PM EDT): Mammogram: 06/17/2024 Normal Pap Smear: Given age no need to continue Colonoscopy: 09/20/11 Dexa scan: 06/2015 Osteoporosis Assessment & Plan (08/15/2023 3:11 PM EDT): [...] Treated in the past Alzheimer's disease 06/26/2018 Overview (08/13/2024): Previous Lumbar puncture. CSF analysis showed Glu 50, OCBs 4 and her VDRL was NEGATIVE Interestingly enough despite a negative VDRL Neurologist chose to treat her again with PCN ( Pt had been appropriately treated for Syphilis many years ago and her RPR titers had remained very low over the years He mentions on his note from 10/22/2018 that MRI of brain only showed mild atrophy and mild MVD He stopped her Aricept Assessment & Plan (08/13/2024 2:46 PM EDT): Doing well She used to be under [...] He stopped her Aricept Assessment & Plan (08/15/2023 2:44 PM EDT): [...] D Essential hypertension 03/26/2015 Assessment & Plan (08/13/2024 2:32 PM EDT): Pt here for a follow [...] counseled about weight loss. Assessment & Plan (03/21/2024 2:55 PM EST): [...] weight loss. Hypercholesterolemia 12/09/2011 Assessment & Plan (08/13/2024 2:33 PM EDT): Patient with elevated lipids. Most [...] about diet and exercise, Assessment & Plan (12/19/2023 1:02 PM EDT): [...] PM EST): Resolved Under the care of Orthopedic Shoe Fitter, last seen 01/20/2022 both GI and Hematology. multifactorial, initially there was a component of iron deficiency. Orthopedic Shoe Fitter thinks might be chronic disease Repeat CBC [...] Encounters Date Type Department Care Team Description 08/13/2024 2:15 PM EDT Office Visit [facility] [address] [place] [address] Darwin Mccain MD Essential hypertension (Primary Dx); Hypercholesterolemia; Alzheimer's disease ([facility]); Preventative health care 08/13/2024 Travel 08/09/2024 Telephone [facility] [address] [place] [address] Darwin Mccain MD chart prep 07/31/2024 Patient Outreach [facility] [address] [place], [place] [phone] Darwin Mccain MD Pre-visit Planning (SDOH negative, Tobacco screening negative. ) 07/29/2024 Refill [facility] [address] [place] [address] Darwin Mccain MD 07/28/2024 Refill [facility] [address] [place] [address] Darwin Mccain MD Gastroesophageal reflux disease without esophagitis 07/12/2024 Refill [facility] [address] [place] [address] Darwin Mccain MD Age-related osteoporosis without current pathological fracture 06/17/2024 Orders Only [facility] [address] [place] [address] Darwin Mccain MD 06/10/2024 3:00 PM EST Office Visit [facility]OM[facility] [address] [place] [address] Venkatesh, Coco, OD 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); Dry eye syndrome of both eyes; Macular drusen, right; 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; Pseudophakia of both eyes; Presbyopia of both eyes 06/10/2024 Travel 06/04/2024 Refill [facility] [address] [place], [place] [phone] Darwin Mccain MD from Last 3 Months [...] Mass Index 26.86 08/13/2024 2:19 PM EDT Plan of Treatment Health Maintenance Due Date Last Done Comments RSV Patients and Patients Aged 60 years or older (1 - 1-dose 75+ series) 2016 COVID-19 Vaccine ( season) 2023 03/24/2022, 04/21/2021, 06/18/2020, Additional history exists Mammogram 06/17/2025 06/17/2024, 02/0 05/2023, 05/02/2022, Additional history exists SDOH Screening 07/31/2025 07/31/2024 Alcohol/Substance Use Screening 08/13/2025 08/13/2024 Depression Screening 08/13/2025 08/13/2024, 08/14/19 25 Tobacco Screening 08/13/2025 08/13/2024 Lipid Panel 12/17/2028 12/18/2023, 03/10, 08/07/2020 DTaP/Tdap/Td [...] Procedure Name Priority Date/Time Associated Diagnosis Comments BASIC METABOLIC PANEL Routine 08/12/2024 8:11 AM EDT Essential hypertension BI MAMMOGRAM SCREENING TOMOSYNTHESIS BILATERAL Routine 06/17/2024 3:00 PM EDT OCT, RETINA - OU - BOTH EYES Routine 06/10/2024 4:22 PM EST Macular drusen, right LIPID PANEL, STANDARD Routine 12/18/2023 8:11 AM EDT Essential hypertension Hypercholesterolemia from Last 3 Months or Most Recently Relevant to Health Maintenance Results * (ABNORMAL) Basic Metabolic Panel (08/12/2024 8:11 AM EDT) Sodium 143 135 - 145 mmol/L [facility] Potassium 4.3 3.3 - 5.1 mmol/L [facility] Chloride 107 96 - 108 mmol/L [facility] Carbon Dioxide 29 22 - 29 mmol/L [facility] Anion Gap 11(L) 12 - 20 [facility] Urea Nitrogen (BUN) 26(H) 9 - 16 mg/dL [facility] Creatinine, Serum 0.72 0.5 - 1.4 mg/dL [facility] Estimated Glomerular Filt Rate >60 [facility] Comment:Chronic Kidney Disea se: Estimated GFR < 60 mL/min/[id number] Kidney Disease: Estimated GFR < 15 mL/min/1.73m2 Glucose 97 60 - 115 mg/dL [facility] Calcium 8.6 8.4 - 10.2 mg/dL [facility] Blood Venous blood specimen / Unknown 08/12/2024 8:11 AM EDT 08/12/2024 11:08 AM EDT us Darwin Lindquist MD LAB BLOOD ORDERABLES Final Result Performing Organization Address City/State/[facility] Co de Phone Number [facility] [address] [place] [phone] * BI Mammogram Screening Tomosynthesis Bilateral (06/17/2024 3:00 PM EDT) Anatomical Region Laterality Modality Breast Bilateral Mammography 06/17/2024 3:00 PM EDT Narrative 06/24/2024 6:22 PM EDT ? [facility] ? [address] ?[place] [address] ? Mammography Report ? Signed ? Patient: Minaya,Dinah ?MR#: [id number] ?? 4 ? : 1940 ?Acct:[id number] ? Age/Sex: 83 / F ?ADM Date: 03/10/25 ? Loc: HO.MAMMO ? Attending Dr: Darwin Rosas MD ? Ordering Physician: Darwin Rosas MD ?Resu ?? lts: 1Negative ? Date of Service: 06/17/24 ?Follow Up: 1 Year From Orig ?? inal Mammogram ? Procedure(s): MM tomosynthesis screening BI ?? Accession Number(s): [id number] ? cc: Darwin Rosas MD ? EXAMINATION: [...] ??Annalisa Burkett DO ??06/24/2024 06:19 PM EDT ? Dictated By: ?Annalisa Burkett DO ? Signed By: ?<Electronically signed by Annalisa Burkett, DO in OV> ? 06/24/249 ? DD/ 1500 ? TD/TT: 06/17/24 1521 ? Manager Custom: ? Procedure Note Donotuseinterpreter, Image - 06/24/2024 [facility] [address] [place], [place] [address] Mammography Report Signed Patient: Dinah MinayaMR#: [id number] 4 : 2Acct:[id number] Age/Sex: 83 / FADM Date: 06/17/24 Loc: [facility] Attending Dr: Darwin Rosas MD Ordering Physician: Darwin Rosas MDResu lts: 1Negative Date of Service: 06/17/24Follow Up: 1 Year From Orig inal Mammogram Procedure(s): MM tomosynthesis screening BI Accession Number(s): [id number] cc: Darwin Rosas MD EXAMINATION: MM SCREENING [...] Annalisa Burkett DO 06/24/2024 06:19 PM EDT RP Dictated By: Annalisa Burkett DO Signed By: <Electronically signed by Annalisa Burkett DO in OV> 06/24/24 1819 DD/ 1500 TD/TT: 06/17/24 1521 Manager Custom: Darwin Lindquist MD IMG BI PROCEDURES Fin al Result * (ABNORMAL) Lipid Panel, Standard (12/18/2023 8:11 AM EDT) Triglycerides 70 <150 mg/dL [facility] Comment:Desirable Triglyceri de: less than 150 mg/dLBorderline High Triglyceride 150-199 mg/dLHigh Triglyceride: 200-499 mg/dLVery High Triglyceride: greater than or equal to 5OO mg/dL Cholesterol 146 <200 mg/dL [facility] Comment:Desirable Cholestero l: less than 200 mg/dLBorderline High Cholesterol: 200-239 mg/dLHigh Cholesterol: greater than 239 mg/dL LDL Cholesterol Calculated 93 <100 mg/dL [facility] Comment:Desirable LDL: less than 100 mg/dLNear Optimal/Above Optimal LDL: 110- 129 mg/dLBorderline High LDL: 130-159 mg/dLHigh LDL: 160-189 mg/dLVery High LDL: greater than or equal to 190 mg/dL HDL Cholesterol 39(L) >40 mg/dL [facility] Comment:Desirable HDL: great er than 40 mg/dL Note: This HDL assay may give artificially low results in patients with liver disease. Blood Venous blood specimen / Unknown 12/18/2023 8:11 AM EDT 12/18/2023 11:32 AM EDT Darwin Lindquist MD LAB BLOOD ORDERABLES Final Result [facility] [address] [place] [phone] from Last 3 Months or Most Recently Relevant to Health Maintenance Insurance [facility] [place] [id number] Advance Directives Documents on File Type Date Recorded Patient Brush Holder Assembler Expl anation Advance Directives and Living Will 03/22/2018 Health Care Proxy 03/22/18 Care Teams Firewall Security Engineer Relationship Specialty Start Date End Date Darwin Mccain MD [address] [place] [phone] PCP - General Internal Medicine 08/07/20
--- OUTSIDE RECORDS SUMMARY | 2024-08-13 16:02 | XMS_ITS ---
Author Name Marcelino BRIANDAPetr Address [address] [place] [address] Phone [phone] [facility] Care Team Providers Care Manager Of Operations Name Role Phone Petr Benson Unavailable [phone] Reason for Referral Not Available Allergies, adverse [...] USE DIRECTED 2022-02-21 No Data Ioana ilable [id number] Ethyl Esters 1 GM Cap TAKE 1 [...] Active 2022-10-13 N/A Other problems related to [facility] facilities and other health care [...] (do not use for phone, instead use 90537-92) [facility] ([place] Alzheimer's disease, unspecifiedDementia in oth diseases classd elswhr w/o behavrl disturbEssential (primary) hypertensionMixed hyperlipidemiaAge-related osteoporosis without current pathological fracture New patient,40-59min; chronic exacerbation, 2 stable chronic or 1 acute illness add add modifier 95 for video (do not use for phone, instead use 68148-17) [facility] New patient,40-59min; chronic exacerbation, 2 stable chronic or 1 acute illness add add modifier 95 for video (do not use for phone, instead use 56844-59) [facility], ([place]) 10/13/20[place] New patient,40-59min; chronic exacerbation, 2 stable chronic or 1 acute illness add add modifier 95 for video (do not use for phone, instead use 91641-39) [facility] New patient,40-59min; chronic exacerbation, 2 stable chronic or 1 acute illness add add modifier 95 for video (do not use for phone, instead use 37601-73) [facility] New patient,40-59min; chronic exacerbation, 2 stable chronic or 1 acute illness add add modifier 95 for video (do not use for phone, instead use 87406-55) [facility] New patient,40-59min; chronic exacerbation, 2 stable chronic or 1 acute illness add add modifier 95 for video (do not use for phone, instead use 17170-05) [facility] New patient,40-59min; chronic exacerbation, 2 stable chronic or 1 acute illness add add modifier 95 for video (do not use for phone, instead use 42515-24) [facility] New patient,40-59min; chronic exacerbation, 2 stable chronic or 1 acute illness add add modifier 95 for video (do not use for phone, instead use 78812-36) [facility] New patient,40-59min; chronic exacerbation, 2 stable chronic or 1 acute illness add add modifier 95 for video (do not use for phone, instead use 91829-21) [facility] 10[place]/20[place] Estab. patient 30-39min; chronic exacerbation, 2 stable chronic or 1 acute illness add add modifier 95 for video, (do not use for phone, instead use 22806-49) [facility] 07[place]/2023 Alzheimer's disease, unspecifiedDementia in oth diseases classd elswhr w/o behavrl disturbEssential (primary) hypertensionMixed hyperlipidemiaOther problems related to medical facilities and other health careAge-related osteoporosis without current pathological fracture Estab. patient 30-39min; chronic exacerbation, 2 stable chronic or 1 acute illness add add modifier 95 for video, (do not use for phone, instead use 69149-32) [facility] Estab. patient 30-39min; chronic exacerbation, 2 stable chronic or 1 acute illness add add modifier 95 for video, (do not use for phone, instead use 50890-72) [facility] Estab. patient 30-39min; chronic exacerbation, 2 stable chronic or 1 acute illness add add modifier 95 for video, (do not use for phone, instead use 13268-33) [facility] Estab. patient 30-39min; chronic exacerbation, 2 stable chronic or 1 acute illness add add modifier 95 for video, (do not use for phone, instead use 62119-69) [facility] Estab. patient 30-39min; chronic exacerbation, 2 stable chronic or 1 acute illness add add modifier 95 for video, (do not use for phone, instead use 52004-66) [facility]20[place] Estab. patient 30-39min; chronic exacerbation, 2 stable chronic or 1 acute illness add add modifier 95 for video, (do not use for phone, instead use 80105-25) [facility] 07[place]20[place] Estab. patient 30-39min; chronic exacerbation, 2 stable chronic or 1 acute illness add add modifier 95 for video, (do not use for phone, instead use 33585-64) [facility] 07[place]20[place] Estab. patient 30-39min; chronic exacerbation, 2 stable chronic or 1 acute illness add add modifier 95 for video, (do not use for phone, instead use 91871-64) [facility] 07[place] Estab. patient 20-29min; 1 stable chronic or 2 minor; add add modifier 95 for video, modifier 93 for phone [facility]/2024 Alzheimer's disease, unspecifiedDementia in oth diseases classd elswhr w/o behavrl disturbEssential (primary) hypertensionMixed hyperlipidemiaOther problems related to medical facilities and other health careAge-related osteoporosis without current pathological fractureOther disorders of lungGastro-esophageal reflux disease without esophagitis Estab. patient 20-29min; 1 stable chronic or 2 minor; add add modifier 95 for video, modifier 93 for phone [facility] 06[place]07/2024 Estab. patient 20-29min; 1 stable chronic or 2 minor; add add modifier 95 for video, modifier 93 for phone [facility] 06/07/2024 Estab. patient 20-29min; 1 stable chronic or 2 minor; add add modifier 95 for video, modifier 93 for phone [facility] 06/07/2024 Estab. patient 20-29min; 1 stable chronic or 2 minor; add add modifier 95 for video, modifier 93 for phone [facility] 06/07/2024 Estab. patient 20-29min; 1 stable chronic or 2 minor; add add modifier 95 for video, modifier 93 for phone [facility] 06/07/2024 Vital Signs Date of Collection Vitals [...] tive Time Current Smoking Status Never smoker 7 Sex Female History of Procedures Procedures Service Procedure code Service date Servicing provider Phone# New patient,40-59min; chronic exacerbation, 2 stable chronic or 1 acute illness add add modifier 95 for video (do not use for phone, instead use 00291-08) [id number] 2022-10-13 No Data Available No Data Availa [...] (do not use for phone, instead use 48681-99) [id number] 2023-07-26 No Data Available No Data Availa [...] 95 for video, modifier 93 for phone [id number] 2024-06-07 No Data Available No Data Availa [...] Effective Dates ambulates with cane, sometimes 6 DIE TRIPPER is her daughter 2022-10-13 IADL: needs help [...] FAST score- 4 Daughter Amy Prieto is DIE TRIPPER and HCPcontinue to monitor memory changesreport sudden [...] If you smoke, quit smoking.alendronate, calcium +Vit [id number] weight bearing exercise for bone healthat risk [...] days/ Limit extra stimulationStableDaughter Amy Prieto is DIE TRIPPER and HCPcontinue to monitor memory changesMonitor for [...] If you smoke, quit smoking.Stablealendronate, calcium +Vit [id number] weight bearing exercise for bone healthat risk [...] days/ Limit extra stimulationStableDaughter Amy Conner is DIE TRIPPER and HCPcontinue to monitor memory changesMonitor for [...] If you smoke, quit smoking.Stablealendronate, calcium +Vit [id number] weight bearing exercise for bone healthat risk [...]
--- OUTSIDE RECORDS SUMMARY | 2024-08-13 16:02 | XMS_ITS | Encounter Summary ---
Author Organization [employer] Address [address] [facility] [address] [place] [address] Care Team Providers Care Health Education Teacher Name Role Phone Darwin Mccain MD Primary Care Provide r Reason for Visit * Reason Comments Med Refill Encounter Details Date Type Department Care Team ([facility] st Contact Info) Description 11/23/2023 Refill [facility] MEDICINE [address] [place], [place] [phone] Darwin Mccain MD [address] [place], [place] [phone] Onychomycosis of left great toe Social History [...] documented as of this encounter Care Teams Health Education Teacher Relationship Specialty Start Date End Date Darwin Mccain MD [address] [place] [id number] PCP - General Internal Medicine 08/07/20 documented as of this encounter
--- OUTSIDE RECORDS SUMMARY | 2024-08-13 16:02 | XMS_ITS | Encounter Summary ---
Author Organization [employer] Address [address] [place] [address] [address] [place] [address] Care Team Providers Care Industrial Relations Worker Name Role Phone Darwin Mccain MD Primary Care Provide r Encounter Details Date Type Department Care Team ([facility] st Contact Info) Description 05/20/2022 Orders Only [facility] [address] [place] [address] Francisca Shanks LPN Social History Tobacco Use [...] on filedocumented in this encounter Care Teams Industrial Relations Worker Relationship Specialty Start Date End Date Darwin Mccain MD [address] [place] [id number] PCP - General Internal Medicine 08/07/20 documented as of this encounter
--- OUTSIDE RECORDS SUMMARY | 2024-08-13 16:02 | XMS_ITS | Encounter Summary ---
Author Organization [employer] Address [address] [facility] [address] [place] [address] Care Team Providers Care Slip Cover Estimator Name Role Phone Darwin Mccain MD Primary Care Provide r Reason for Visit * Reason Onset Date Comments chart prep 08/09/2024 Encounter Details Date Type Department Care Team ([facility] st Contact Info) Description 08/09/2024 Telephone [facility] MEDICINE [address] [place], [place] [phone] Darwin Mccain MD [address] [place], [place] [phone] chart prep Social History Tobacco Use Types [...] documented in this encounter Plan of Treatment Not on file documented as of this encounter Visit Diagnoses Not on filedocumented in this encounter Additional Health Concerns Assessment Noted Time PHQ-9 Depression Total Score: 0 08/15/19 24 2:20 PM EDT documented as of this encounter Care Teams Slip Cover Estimator Relationship Specialty Start Date End Date Darwin Mccain MD [address] [place] [id number] PCP - General Internal Medicine 08/07/20 documented as of this encounter
[2024-08-13 18:25] LABS: Alanine Aminotransferase 15 U/L (0-31); Albumin Level 3.8 g/dL (3.5-5.0); Alkaline Phosphatase 75 U/L (39-117); Aspartate Amino Transferase 28 U/L (5-31); Bilirubin Direct 0.1 mg/dL (0.0-0.5); Bilirubin Total 0.3 mg/dL (0.0-1.0); Cholesterol 145 mg/dL (<200); HDL Cholesterol 41 mg/dL (>40); LDL Cholesterol Calculated 87 mg/dL (<100); Total Protein 7.1 g/dL (6.5-8.0); Triglycerides 85 mg/dL (<150)
== END 2024-08-13 14:49 | disposition home or self-care (01) ==
LOC: HO.HHCL 14:48
PROVIDERS: Visit Provider Internal Medicine
DX: E78.00 Pure hypercholesterolemia, unspecified (principal)
CPT/HCPCS: 36415; 80061; 80076